=== PATIENT | male | born 1990 | race Caucasian/White ===

== ENCOUNTER 2017-08-02 10:36 | Inpatient (IN) | payer MEDICAID ==
[~2017-08-02] VITALS: Ht 175.3 cm; Wt 87.8 kg
[2017-08-02] MEDS ORDERED: ARIP2 PO (11:01)
[2017-08-02 11:12] LABS: BASOPHILS % (AUTO) 0.5 % (0.0-2.0); EOSINOPHILS % (AUTO) 0.9 % (1.0-6.0); HEMATOCRIT 47.6 % (41-53); HEMOGLOBIN 16.3 g/dL (13.5-17.5); LYMPHOCYTES # (AUTO) 2.1 K/uL (1.0-4.8); LYMPHOCYTES % (AUTO) 24.6 % (22.0-44.0); MEAN CORPUSCULAR HEMOGLOBIN 32.5 pg (26.0-34.0); MEAN CORPUSCULAR HGB CONC 34.4 G/dL (31.0-37.0); MEAN CORPUSCULAR VOLUME 94 fL (80-100); MONOCYTES # (AUTO) 0.6 K/uL (0.1-1.0); MONOCYTES % (AUTO) 7.1 % (2.0-9.0); NEUTROPHILS # (AUTO) 5.8 K/uL (1.8-7.7); NEUTROPHILS % (AUTO) 66.9 % (40.0-70.0); PLATELET COUNT (AUTO) 234 K/uL (150-450); RED BLOOD CELL COUNT(AUTO) 5.04 MIL/uL (4.50-5.90); RED CELL DISTRIBUTION WIDTH 13.2 % (11.5-14.5)
[2017-08-02 11:24] LABS: ANION GAP 8 mmol/L (8-16); CALCIUM, TOTAL 9.1 mg/dL (8.8-10.5); CARBON DIOXIDE 29 mmol/L (22-29); CHLORIDE 105 mmol/L (98-107); CREATININE 0.87 mg/dL (0.60-1.30); GLOMERULAR FILTR. RATE CALC > 60 mL/min (>60); GLUCOSE,RANDOM 94 mg/dL (70-110); POTASSIUM 3.9 mmol/L (3.5-5.1); SODIUM SERUM 142 mmol/L (136-145); UREA NITROGEN, BLOOD 8 mg/dL (7-18)
[2017-08-02 11:29] LABS: ALANINE AMINOTRANSFERASE 21 U/L (12-78); ALKALINE PHOSPHATASE 80 U/L (46-116); ASPARTATE AMINOTRANSFERASE 13 U/L (15-37); BILIRUBIN,TOTAL 0.2 mg/dL (0.1-1.0); TOTAL PROTEIN, SERUM 7.3 g/dL (6.4-8.2)
[2017-08-02] MEDS ORDERED: TOPI100T37 PO (11:31)
[2017-08-02] MEDS ORDERED: DIVA-76 PO (11:31)
[2017-08-02] MEDS ORDERED: METF500T6 PO (11:31)
[2017-08-02 14:34] VITALS: BP 122/69
[2017-08-02 14:38] LABS: CHOL/HDL RATIO 2.3 (4.2-7.3); CHOLESTEROL 116 mg/dL (131-200); HDL CHOLESTEROL 51 mg/dL (40-60); LDL CHOL (CALC.) 54 mg/dL (0-130); TRIGLYCERIDES 53 mg/dL (15-150)
[2017-08-02 19:19] VITALS: BP 118/81
[2017-08-03 08:05] VITALS: BP 107/63
[2017-08-03] MEDS ORDERED: ARIPiprazole 2 MG TABLET PO SCH (09:30)
[2017-08-03] MEDS: DIVALPROEX SODIUM 250 MG DR TABLET PO SCH ×2 (10:51→16:56)
[2017-08-03] MEDS ORDERED: ARIPiprazole 10 MG TABLET PO ONE (11:15)
[2017-08-03] MEDS ORDERED: MAG HYDROX/AL HYDROX/SIMETH ES 30 ML SUSPENSION UDCUP PO PRN (16:45)
[2017-08-03] MEDS ORDERED: BENZOCAINE/MENTHOL LOZENGE [8 LOZENGES/PACKET] MM PRN (16:45)
[2017-08-03] MEDS ORDERED: PETROLATUM,WHITE 71 GM JELLY TP PRN (16:45)
[2017-08-03] MEDS ORDERED: ONDANSETRON HCL 4 MG TABLET PO PRN (16:45)
[2017-08-03] MEDS ORDERED: ALBUTEROL SULFATE HFA 90 MCG/PUFF 8 GM INHALER IH PRN (16:45)
[2017-08-03] MEDS ORDERED: CloNIDine HCL 0.1 MG TABLET PO PRN (16:45)
[2017-08-03] MEDS ORDERED: MAGNESIUM HYDROXIDE SUSPENSION 30 ML UDCUP PO PRN (16:45)
[2017-08-03] MEDS ORDERED: LOPERAMIDE HCL 2 MG CAPSULE PO PRN (16:45)
[2017-08-03] MEDS: TOPIRAMATE 100 MG TABLET PO SCH (16:56)
[2017-08-03 17:00] VITALS: BP 103/68
[2017-08-04 09:12] VITALS: BP 114/73
[2017-08-04] MEDS: TOPIRAMATE 100 MG TABLET PO SCH ×2 (09:14→17:51)
[2017-08-04] MEDS: DIVALPROEX SODIUM 250 MG DR TABLET PO SCH ×2 (09:14→17:51)
[2017-08-04] MEDS: ARIPiprazole 15 MG TABLET PO SCH (09:14)
[2017-08-04 16:15] VITALS: BP 114/79
[2017-08-05 08:05] VITALS: BP 109/62
[2017-08-05] MEDS: DIVALPROEX SODIUM 250 MG DR TABLET PO SCH ×2 (09:10→16:16)
[2017-08-05] MEDS: TOPIRAMATE 100 MG TABLET PO SCH ×2 (09:10→16:15)
[2017-08-05] MEDS: ARIPiprazole 15 MG TABLET PO SCH (09:10)
[2017-08-05 16:31] VITALS: BP 110/77
[2017-08-06 08:29] VITALS: BP 126/75
[2017-08-06] MEDS: DIVALPROEX SODIUM 250 MG DR TABLET PO SCH ×2 (09:56→16:15)
[2017-08-06] MEDS: TOPIRAMATE 100 MG TABLET PO SCH ×2 (09:56→16:15)
[2017-08-06] MEDS: ARIPiprazole 15 MG TABLET PO SCH (09:56)
[2017-08-06 17:11] VITALS: BP 105/66
[2017-08-07 08:08] VITALS: BP 111/60
[2017-08-07] MEDS: DIVALPROEX SODIUM 250 MG DR TABLET PO SCH ×2 (08:59→16:13)
[2017-08-07] MEDS: ARIPiprazole 15 MG TABLET PO SCH (08:59)
[2017-08-07] MEDS: TOPIRAMATE 100 MG TABLET PO SCH ×2 (09:00→16:13)
[2017-08-07 22:39] VITALS: BP 122/75
[2017-08-08 08:38] VITALS: BP 123/74
[2017-08-08] MEDS: ARIPiprazole 15 MG TABLET PO SCH (09:08)
[2017-08-08] MEDS: TOPIRAMATE 100 MG TABLET PO SCH ×2 (09:09→16:28)
[2017-08-08] MEDS: DIVALPROEX SODIUM 250 MG DR TABLET PO SCH ×2 (09:09→16:28)
[2017-08-08] MEDS ORDERED: TUBERCULIN, PURIFIED PROTEIN DERIVATIVE 5 TU/0.1 ML SYG ID ONE (11:00)
[2017-08-08] MEDS: LORazepam 2 MG TABLET PO PRN (17:08)
[2017-08-08 18:00] VITALS: BP 122/70
[2017-08-09] MEDS: DIVALPROEX SODIUM 250 MG DR TABLET PO SCH ×2 (09:32→16:23)
[2017-08-09] MEDS: ARIPiprazole 15 MG TABLET PO SCH (09:33)
[2017-08-09] MEDS: TOPIRAMATE 100 MG TABLET PO SCH ×2 (09:33→16:23)
[2017-08-09 09:51] VITALS: BP 110/72
[2017-08-09] MEDS: LORazepam 2 MG TABLET PO PRN (16:22)
[2017-08-09 16:53] VITALS: BP 127/53
[2017-08-10] MEDS: TOPIRAMATE 100 MG TABLET PO SCH ×2 (08:58→16:07)
[2017-08-10] MEDS: ARIPiprazole 15 MG TABLET PO SCH (08:58)
[2017-08-10 09:00] VITALS: BP 129/67
[2017-08-10] MEDS: DIVALPROEX SODIUM 250 MG DR TABLET PO SCH ×2 (09:00→16:07)
[2017-08-10] MEDS: LORazepam 2 MG TABLET PO PRN ×3 (10:41→16:08)
[2017-08-10 16:22] VITALS: BP 142/93
[2017-08-11 08:10] VITALS: BP 116/60
[2017-08-11] MEDS: ARIPiprazole 15 MG TABLET PO SCH (08:50)
[2017-08-11] MEDS: DIVALPROEX SODIUM 250 MG DR TABLET PO SCH ×2 (08:50→16:06)
[2017-08-11] MEDS: TOPIRAMATE 100 MG TABLET PO SCH ×2 (08:50→16:06)
[2017-08-11] MEDS: LORazepam 2 MG TABLET PO PRN (16:06)
[2017-08-11 16:44] VITALS: BP 127/73
[2017-08-12] MEDS: ZOLPIDEM TARTRATE 10 MG TABLET PO PRN (02:27)
[2017-08-12 08:00] VITALS: BP 121/79
[2017-08-12] MEDS: DIVALPROEX SODIUM 250 MG DR TABLET PO SCH ×2 (08:28→16:22)
[2017-08-12] MEDS: TOPIRAMATE 100 MG TABLET PO SCH ×2 (08:29→16:22)
[2017-08-12] MEDS: ARIPiprazole 15 MG TABLET PO SCH (08:29)
[2017-08-12] MEDS: LORazepam 2 MG TABLET PO PRN ×2 (08:49→21:09)
[2017-08-13] MEDS: IBUPROFEN 600 MG TABLET PO PRN ×2 (03:48→10:03)
[2017-08-13 08:37] VITALS: BP 119/70
[2017-08-13] MEDS: OLANZapine 5 MG RAPDIS TABLET PO PRN (08:48)
[2017-08-13] MEDS: TOPIRAMATE 100 MG TABLET PO SCH ×2 (08:48→16:54)
[2017-08-13] MEDS: ARIPiprazole 15 MG TABLET PO SCH (08:48)
[2017-08-13] MEDS: LORazepam 2 MG TABLET PO PRN ×2 (08:48→17:46)
[2017-08-13] MEDS: DIVALPROEX SODIUM 250 MG DR TABLET PO SCH ×2 (08:48→16:54)
[2017-08-13 16:00] VITALS: BP 102/62
[2017-08-14 00:20] VITALS: BP 120/68
[2017-08-14] MEDS: IBUPROFEN 600 MG TABLET PO PRN ×2 (00:26→23:37)
[2017-08-14] MEDS: LORazepam 2 MG TABLET PO PRN ×2 (00:27→11:35)
[2017-08-14] MEDS: ZOLPIDEM TARTRATE 10 MG TABLET PO PRN ×2 (00:27→23:36)
[2017-08-14 08:00] VITALS: BP 119/77
[2017-08-14] MEDS: ARIPiprazole 15 MG TABLET PO SCH (08:42)
[2017-08-14] MEDS: DIVALPROEX SODIUM 250 MG DR TABLET PO SCH ×2 (08:42→19:21)
[2017-08-14] MEDS: TOPIRAMATE 100 MG TABLET PO SCH ×2 (08:42→19:21)
[2017-08-14 16:00] VITALS: BP 116/73
[2017-08-14 23:37] VITALS: BP 118/75
[2017-08-15 08:21] VITALS: BP 113/83
[2017-08-15] MEDS: LORazepam 2 MG TABLET PO PRN (08:52)
[2017-08-15] MEDS: ARIPiprazole 15 MG TABLET PO SCH (08:58)
[2017-08-15] MEDS: TOPIRAMATE 100 MG TABLET PO SCH ×2 (08:58→16:06)
[2017-08-15] MEDS: DIVALPROEX SODIUM 250 MG DR TABLET PO SCH (08:58)
[2017-08-15 20:05] VITALS: BP 121/71
[2017-08-15] MEDS: DIVALPROEX SODIUM 500 MG ER TABLET PO SCH (20:09)
[2017-08-15] MEDS: ACETAMINOPHEN 325 MG TABLET PO PRN (20:10)
[2017-08-15 21:05] VITALS: BP 116/74
[2017-08-16] MEDS: LORazepam 2 MG TABLET PO PRN ×2 (07:38→20:10)
[2017-08-16] MEDS: IBUPROFEN 600 MG TABLET PO PRN (07:39)
[2017-08-16 08:00] VITALS: BP 113/80
[2017-08-16] MEDS: TOPIRAMATE 100 MG TABLET PO SCH ×2 (08:26→16:52)
[2017-08-16] MEDS: ARIPiprazole 15 MG TABLET PO SCH (08:26)
[2017-08-16] MEDS ORDERED: HALOPERIDOL LACTATE 5 MG/ML VIAL IM PRN (08:30)
[2017-08-16 16:56] VITALS: BP 122/82
[2017-08-16] MEDS: DIVALPROEX SODIUM 500 MG ER TABLET PO SCH (20:09)
[2017-08-17] MEDS: ARIPiprazole 15 MG TABLET PO SCH (08:36)
[2017-08-17] MEDS: TOPIRAMATE 100 MG TABLET PO SCH ×2 (08:37→16:06)
[2017-08-17 08:53] VITALS: BP 106/55
[2017-08-17] MEDS: LORazepam 2 MG TABLET PO PRN ×2 (10:26→16:06)
[2017-08-17] MEDS: IBUPROFEN 600 MG TABLET PO PRN (10:33)
[2017-08-17 20:17] VITALS: BP 108/69
[2017-08-17] MEDS: DIVALPROEX SODIUM 500 MG ER TABLET PO SCH (21:00)
[2017-08-18 02:02] VITALS: BP 114/53
[2017-08-18] MEDS: IBUPROFEN 600 MG TABLET PO PRN ×2 (02:06→08:26)
[2017-08-18] MEDS: ZOLPIDEM TARTRATE 10 MG TABLET PO PRN ×2 (02:16→20:28)
[2017-08-18] MEDS: TOPIRAMATE 100 MG TABLET PO SCH ×2 (08:05→16:36)
[2017-08-18] MEDS: ARIPiprazole 15 MG TABLET PO SCH (08:05)
[2017-08-18 09:07] VITALS: BP 111/69
[2017-08-18] MEDS: LORazepam 2 MG TABLET PO PRN ×2 (09:28→16:13)
[2017-08-18 16:00] VITALS: BP 118/76
[2017-08-18] MEDS: DIVALPROEX SODIUM 500 MG ER TABLET PO SCH (20:21)
[2017-08-19 00:45] VITALS: BP 127/56
[2017-08-19] MEDS: IBUPROFEN 600 MG TABLET PO PRN ×3 (00:48→19:42)
[2017-08-19] MEDS: ARIPiprazole 15 MG TABLET PO SCH (08:22)
[2017-08-19] MEDS: LORazepam 2 MG TABLET PO PRN ×3 (08:23→19:42)
[2017-08-19] MEDS: TOPIRAMATE 100 MG TABLET PO SCH ×2 (08:24→17:09)
[2017-08-19 08:39] VITALS: BP 122/69
[2017-08-19 08:42] VITALS: BP 122/69
[2017-08-19 19:43] VITALS: BP 122/70
[2017-08-19] MEDS: DIVALPROEX SODIUM 500 MG ER TABLET PO SCH (20:41)
[2017-08-19] MEDS: ZOLPIDEM TARTRATE 10 MG TABLET PO PRN (20:45)
[2017-08-19] MEDS: BENZOCAINE 10% 7 GM GEL TP PRN (20:45)
[2017-08-20] MEDS: ARIPiprazole 15 MG TABLET PO SCH (08:05)
[2017-08-20] MEDS: IBUPROFEN 600 MG TABLET PO PRN ×2 (08:06→18:38)
[2017-08-20] MEDS: TOPIRAMATE 100 MG TABLET PO SCH ×2 (08:06→16:15)
[2017-08-20] MEDS: LORazepam 2 MG TABLET PO PRN ×2 (08:06→19:55)
[2017-08-20] MEDS: BENZOCAINE 10% 7 GM GEL TP PRN ×2 (08:06→20:35)
[2017-08-20] MEDS: MAGNESIUM SULFATE 454 GM BOX PO SCH ×3 (08:07→16:25)
[2017-08-20 09:26] LABS: HEMATOCRIT 44.9 % (41-53); HEMOGLOBIN 15.7 g/dL (13.5-17.5); MEAN CORPUSCULAR HEMOGLOBIN 32.4 pg (26.0-34.0); MEAN CORPUSCULAR HGB CONC 34.9 G/dL (31.0-37.0); MEAN CORPUSCULAR VOLUME 93 fL (80-100); PLATELET COUNT (AUTO) 202 K/uL (150-450); RED BLOOD CELL COUNT(AUTO) 4.83 MIL/uL (4.50-5.90); RED CELL DISTRIBUTION WIDTH 13.6 % (11.5-14.5)
[2017-08-20 09:40] LABS: ANION GAP 9 mmol/L (8-16); CALCIUM, TOTAL 8.9 mg/dL (8.8-10.5); CARBON DIOXIDE 27 mmol/L (22-29); CHLORIDE 105 mmol/L (98-107); CREATININE 0.87 mg/dL (0.60-1.30); GLOMERULAR FILTR. RATE CALC > 60 mL/min (>60); GLUCOSE,RANDOM 94 mg/dL (70-110); PHOSPHORUS 3.9 mg/dL (2.5-4.9); POTASSIUM 4.3 mmol/L (3.5-5.1); SODIUM SERUM 141 mmol/L (136-145); UREA NITROGEN, BLOOD 16 mg/dL (7-18)
[2017-08-20 11:14] LABS: BAND NEUTROPHILS % (MANUAL) 5 % (1-5); EOSINOPHILS % (MANUAL) 3 % (1-6); LYMPHOCYTES % (MANUAL) 17 % (22-44); MONOCYTES % (MANUAL) 8 % (2-9); SEGMENTED NEUTROPHILS % 67 % (40-70)
[2017-08-20 11:45] VITALS: BP 112/87
[2017-08-20 18:42] VITALS: BP 125/66
[2017-08-20] MEDS: DIVALPROEX SODIUM 500 MG ER TABLET PO SCH (20:35)
[2017-08-21 08:15] VITALS: BP 105/72
[2017-08-21] MEDS: MAGNESIUM SULFATE 454 GM BOX PO SCH ×3 (08:55→16:33)
[2017-08-21] MEDS: ARIPiprazole 15 MG TABLET PO SCH (08:55)
[2017-08-21] MEDS: TOPIRAMATE 100 MG TABLET PO SCH ×2 (08:56→16:33)
[2017-08-21] MEDS: BENZOCAINE 10% 7 GM GEL TP PRN ×2 (09:33→18:23)
[2017-08-21 09:34] VITALS: BP 105/72
[2017-08-21] MEDS: IBUPROFEN 600 MG TABLET PO PRN ×2 (09:34→18:12)
[2017-08-21 16:28] VITALS: BP 100/73
[2017-08-21] MEDS: DIVALPROEX SODIUM 500 MG ER TABLET PO SCH (20:37)
[2017-08-22 08:19] VITALS: BP 126/77
[2017-08-22] MEDS: ARIPiprazole 15 MG TABLET PO SCH (08:35)
[2017-08-22] MEDS: MAGNESIUM SULFATE 454 GM BOX PO SCH ×3 (08:35→16:25)
[2017-08-22] MEDS: TOPIRAMATE 100 MG TABLET PO SCH ×2 (08:36→16:25)
[2017-08-22] MEDS: BENZOCAINE 10% 7 GM GEL TP PRN ×2 (09:46→18:33)
[2017-08-22] MEDS: NICOTINE 21 MG/24 HOUR PATCH TD SCH (10:50)
[2017-08-22] MEDS: AMOXICILLIN TRIHYDRATE 250 MG CAPSULE PO SCH ×2 (12:32→16:25)
[2017-08-22 16:00] VITALS: BP 129/78
[2017-08-22] MEDS: IBUPROFEN 600 MG TABLET PO PRN (18:31)
[2017-08-22] MEDS: LORazepam 2 MG TABLET PO PRN (18:52)
[2017-08-22] MEDS: DIVALPROEX SODIUM 500 MG ER TABLET PO SCH (20:13)
[2017-08-23] MEDS: AMOXICILLIN TRIHYDRATE 250 MG CAPSULE PO SCH ×2 (08:58→16:20)
[2017-08-23] MEDS: TOPIRAMATE 100 MG TABLET PO SCH ×2 (08:58→16:20)
[2017-08-23] MEDS: ARIPiprazole 15 MG TABLET PO SCH (08:58)
[2017-08-23] MEDS: MAGNESIUM SULFATE 454 GM BOX PO SCH ×3 (09:00→16:19)
[2017-08-23 09:15] VITALS: BP 104/60
[2017-08-23] MEDS: NICOTINE 21 MG/24 HOUR PATCH TD SCH (11:08)
[2017-08-23 16:00] VITALS: BP 105/70
[2017-08-23] MEDS: DIVALPROEX SODIUM 500 MG ER TABLET PO SCH (20:38)
[2017-08-24 08:00] VITALS: BP 121/71
[2017-08-24] MEDS: AMOXICILLIN TRIHYDRATE 250 MG CAPSULE PO SCH ×2 (08:42→16:26)
[2017-08-24] MEDS: TOPIRAMATE 100 MG TABLET PO SCH ×2 (08:42→16:26)
[2017-08-24] MEDS: ARIPiprazole 15 MG TABLET PO SCH (08:42)
[2017-08-24] MEDS: NICOTINE 21 MG/24 HOUR PATCH TD SCH (08:46)
[2017-08-24] MEDS: MAGNESIUM SULFATE 454 GM BOX PO SCH ×3 (09:00→16:26)
[2017-08-24 16:25] VITALS: BP 115/55
[2017-08-24] MEDS: BENZOCAINE 10% 7 GM GEL TP PRN (18:45)
[2017-08-24] MEDS: DIVALPROEX SODIUM 500 MG ER TABLET PO SCH (20:13)
[2017-08-25] MEDS: ARIPiprazole 15 MG TABLET PO SCH (07:59)
[2017-08-25] MEDS: TOPIRAMATE 100 MG TABLET PO SCH ×2 (07:59→18:00)
[2017-08-25] MEDS: AMOXICILLIN TRIHYDRATE 250 MG CAPSULE PO SCH ×2 (07:59→18:00)
[2017-08-25] MEDS: MAGNESIUM SULFATE 454 GM BOX PO SCH ×3 (08:47→17:00)
[2017-08-25 09:00] VITALS: BP 108/67
[2017-08-25] MEDS: NICOTINE 21 MG/24 HOUR PATCH TD SCH ×2 (09:00→14:20)
[2017-08-25] MEDS: BENZOCAINE 10% 7 GM GEL TP PRN (09:03)
[2017-08-25 19:30] VITALS: BP 126/76
[2017-08-25] MEDS: ACETAMINOPHEN 325 MG TABLET PO PRN (19:33)
[2017-08-25] MEDS: DIVALPROEX SODIUM 500 MG ER TABLET PO SCH (20:07)
[2017-08-25] MEDS: ZOLPIDEM TARTRATE 10 MG TABLET PO PRN (20:07)
[2017-08-25] MEDS: LORazepam 2 MG TABLET PO PRN (22:17)
[2017-08-26] MEDS: MAGNESIUM SULFATE 454 GM BOX PO SCH ×3 (09:11→16:18)
[2017-08-26] MEDS: AMOXICILLIN TRIHYDRATE 250 MG CAPSULE PO SCH ×2 (09:11→16:17)
[2017-08-26] MEDS: TOPIRAMATE 100 MG TABLET PO SCH ×2 (09:11→16:17)
[2017-08-26] MEDS: ARIPiprazole 15 MG TABLET PO SCH (09:11)
[2017-08-26 10:27] VITALS: BP_SYST 134; BP_DIAS 74; BP_DIAS 86
[2017-08-26 16:19] VITALS: BP 133/68
[2017-08-26] MEDS: IBUPROFEN 600 MG TABLET PO PRN (16:20)
[2017-08-26] MEDS: DIVALPROEX SODIUM 500 MG ER TABLET PO SCH (20:23)
[2017-08-27] MEDS: TOPIRAMATE 100 MG TABLET PO SCH ×2 (07:59→16:09)
[2017-08-27] MEDS: AMOXICILLIN TRIHYDRATE 250 MG CAPSULE PO SCH (07:59)
[2017-08-27] MEDS: ARIPiprazole 15 MG TABLET PO SCH (07:59)
[2017-08-27] MEDS: NICOTINE 21 MG/24 HOUR PATCH TD SCH (08:02)
[2017-08-27 08:37] VITALS: BP 105/69
[2017-08-27] MEDS: MAGNESIUM SULFATE 454 GM BOX PO SCH ×3 (08:39→16:11)
[2017-08-27] MEDS: BENZOCAINE 10% 7 GM GEL TP PRN (08:46)
[2017-08-27] MEDS: ACETAMINOPHEN 325 MG TABLET PO PRN ×2 (08:46→14:38)
[2017-08-27] MEDS: LORazepam 2 MG TABLET PO PRN (14:39)
[2017-08-27 15:38] VITALS: BP 116/71
[2017-08-27 19:49] VITALS: BP 118/69
[2017-08-27] MEDS: DIVALPROEX SODIUM 500 MG ER TABLET PO SCH (20:56)
[2017-08-27] MEDS: ZOLPIDEM TARTRATE 10 MG TABLET PO PRN (23:35)
[2017-08-28] MEDS: TOPIRAMATE 100 MG TABLET PO SCH ×2 (08:16→16:02)
[2017-08-28] MEDS: ARIPiprazole 15 MG TABLET PO SCH (08:16)
[2017-08-28] MEDS: NICOTINE 21 MG/24 HOUR PATCH TD SCH (08:38)
[2017-08-28] MEDS: MAGNESIUM SULFATE 454 GM BOX PO SCH ×3 (09:00→16:03)
[2017-08-28 10:34] VITALS: BP 124/64
[2017-08-28] MEDS: LORazepam 2 MG TABLET PO PRN (17:11)
[2017-08-28 17:20] VITALS: BP 102/59
[2017-08-28] MEDS: DIVALPROEX SODIUM 500 MG ER TABLET PO SCH (20:05)
[2017-08-28] MEDS: ZOLPIDEM TARTRATE 10 MG TABLET PO PRN (20:46)
[2017-08-28] MEDS: IBUPROFEN 600 MG TABLET PO PRN (21:24)
[2017-08-28] MEDS: BENZOCAINE 10% 7 GM GEL TP PRN (21:25)
[2017-08-29 08:50] VITALS: BP 116/68
[2017-08-29] MEDS: MAGNESIUM SULFATE 454 GM BOX PO SCH ×3 (09:00→16:02)
[2017-08-29] MEDS: ARIPiprazole 10 MG TABLET PO SCH (09:30)
[2017-08-29] MEDS: TOPIRAMATE 100 MG TABLET PO SCH ×2 (09:30→16:03)
[2017-08-29] MEDS: NICOTINE 21 MG/24 HOUR PATCH TD SCH (09:31)
[2017-08-29 15:54] VITALS: BP 118/73
[2017-08-29] MEDS: IBUPROFEN 600 MG TABLET PO PRN (15:54)
[2017-08-29] MEDS: DIVALPROEX SODIUM 500 MG ER TABLET PO SCH (20:43)
[2017-08-30 01:48] VITALS: BP 119/93
[2017-08-30] MEDS: MAGNESIUM SULFATE 454 GM BOX PO SCH ×3 (09:00→16:32)
[2017-08-30] MEDS: TOPIRAMATE 100 MG TABLET PO SCH ×2 (09:16→16:32)
[2017-08-30] MEDS: ARIPiprazole 10 MG TABLET PO SCH (09:16)
[2017-08-30] MEDS: NICOTINE 21 MG/24 HOUR PATCH TD SCH (09:20)
[2017-08-30] MEDS: IBUPROFEN 600 MG TABLET PO PRN (09:21)
[2017-08-30 09:22] VITALS: BP 114/69
[2017-08-30] MEDS: LORazepam 2 MG TABLET PO PRN (14:54)
[2017-08-30 16:45] VITALS: BP 126/83
[2017-08-30] MEDS: DIVALPROEX SODIUM 500 MG ER TABLET PO SCH (20:29)
[2017-08-31 08:28] VITALS: BP 105/57
[2017-08-31] MEDS: ARIPiprazole 10 MG TABLET PO SCH (08:58)
[2017-08-31] MEDS: TOPIRAMATE 100 MG TABLET PO SCH ×2 (08:58→16:14)
[2017-08-31] MEDS: MAGNESIUM SULFATE 454 GM BOX PO SCH ×3 (08:58→16:14)
[2017-08-31] MEDS: NICOTINE 21 MG/24 HOUR PATCH TD SCH (08:59)
[2017-08-31] MEDS: LORazepam 2 MG TABLET PO PRN (10:17)
[2017-08-31 16:00] VITALS: BP 126/82
[2017-08-31] MEDS: DIVALPROEX SODIUM 500 MG ER TABLET PO SCH (20:19)
[2017-09-01 08:32] VITALS: BP 136/74
[2017-09-01] MEDS: LORazepam 2 MG TABLET PO PRN (08:35)
[2017-09-01] MEDS: MAGNESIUM SULFATE 454 GM BOX PO SCH ×3 (08:35→16:09)
[2017-09-01] MEDS: ARIPiprazole 10 MG TABLET PO SCH (08:35)
[2017-09-01] MEDS: TOPIRAMATE 100 MG TABLET PO SCH ×2 (08:35→16:09)
[2017-09-01] MEDS: NICOTINE 21 MG/24 HOUR PATCH TD SCH (08:37)
[2017-09-01 16:00] VITALS: BP 133/78
[2017-09-01] MEDS: DIVALPROEX SODIUM 500 MG ER TABLET PO SCH (20:26)
[2017-09-02] MEDS: IBUPROFEN 600 MG TABLET PO PRN (04:10)
[2017-09-02] MEDS ORDERED: HALOPERIDOL LACTATE 5 MG/ML VIAL IM ONE (05:00)
[2017-09-02] MEDS ORDERED: DiphenhydrAMINE HCL 50 MG/ML VIAL IM ONE (05:00)
[2017-09-02] MEDS ORDERED: LORazepam 2 MG/ML VIAL IM ONE (05:00)
[2017-09-02] MEDS: ARIPiprazole 10 MG TABLET PO SCH (07:40)
[2017-09-02] MEDS: TOPIRAMATE 100 MG TABLET PO SCH ×2 (07:40→17:20)
[2017-09-02] MEDS: MAGNESIUM SULFATE 454 GM BOX PO SCH ×3 (07:40→17:00)
[2017-09-02] MEDS: NICOTINE 21 MG/24 HOUR PATCH TD SCH (07:46)
[2017-09-02] MEDS: DIVALPROEX SODIUM 500 MG ER TABLET PO SCH (20:54)
[2017-09-03 09:00] VITALS: BP 108/55
[2017-09-03] MEDS: NICOTINE 21 MG/24 HOUR PATCH TD SCH (09:00)
[2017-09-03] MEDS: TOPIRAMATE 100 MG TABLET PO SCH ×2 (09:27→17:33)
[2017-09-03] MEDS: ARIPiprazole 10 MG TABLET PO SCH (09:27)
[2017-09-03] MEDS: MAGNESIUM SULFATE 454 GM BOX PO SCH ×3 (10:00→17:36)
[2017-09-03] MEDS: BENZOCAINE 10% 7 GM GEL TP PRN (12:02)
[2017-09-03 17:38] VITALS: BP 112/65
[2017-09-03] MEDS: IBUPROFEN 600 MG TABLET PO PRN (20:10)
[2017-09-03] MEDS: DIVALPROEX SODIUM 500 MG ER TABLET PO SCH (20:14)
[2017-09-04] MEDS: MAGNESIUM SULFATE 454 GM BOX PO SCH ×3 (09:00→16:34)
[2017-09-04 09:24] VITALS: BP 129/79
[2017-09-04] MEDS: ARIPiprazole 10 MG TABLET PO SCH (09:29)
[2017-09-04] MEDS: TOPIRAMATE 100 MG TABLET PO SCH ×2 (09:30→16:34)
[2017-09-04] MEDS: NICOTINE 21 MG/24 HOUR PATCH TD SCH (09:35)
[2017-09-04] MEDS: IBUPROFEN 600 MG TABLET PO PRN (15:14)
[2017-09-04] MEDS: LORazepam 2 MG TABLET PO PRN (15:50)
[2017-09-04 16:14] VITALS: BP 116/71
[2017-09-04] MEDS: DIVALPROEX SODIUM 500 MG ER TABLET PO SCH (20:15)
[2017-09-05 08:13] VITALS: BP 124/68
[2017-09-05] MEDS: TOPIRAMATE 100 MG TABLET PO SCH ×2 (09:09→16:27)
[2017-09-05] MEDS: ARIPiprazole 10 MG TABLET PO SCH (09:09)
[2017-09-05] MEDS: MAGNESIUM SULFATE 454 GM BOX PO SCH ×3 (09:09→16:26)
[2017-09-05] MEDS: NICOTINE 21 MG/24 HOUR PATCH TD SCH (09:09)
[2017-09-05] MEDS: IBUPROFEN 600 MG TABLET PO PRN ×2 (11:47→21:18)
[2017-09-05 12:47] VITALS: BP 119/72
[2017-09-05 16:00] VITALS: BP 114/68
[2017-09-05 18:09] VITALS: BP 126/68
[2017-09-05] MEDS: DIVALPROEX SODIUM 500 MG ER TABLET PO SCH (20:06)
[2017-09-06 08:29] VITALS: BP 102/67
[2017-09-06] MEDS: ARIPiprazole 10 MG TABLET PO SCH (11:00)
[2017-09-06] MEDS: TOPIRAMATE 100 MG TABLET PO SCH ×2 (11:00→17:07)
[2017-09-06] MEDS: IBUPROFEN 600 MG TABLET PO PRN ×2 (11:00→17:56)
[2017-09-06] MEDS: MAGNESIUM SULFATE 454 GM BOX PO SCH ×3 (11:01→17:07)
[2017-09-06] MEDS: NICOTINE 21 MG/24 HOUR PATCH TD SCH (11:02)
[2017-09-06] MEDS: BENZOCAINE 10% 7 GM GEL TP PRN (11:03)
[2017-09-06 17:57] VITALS: BP 118/82
[2017-09-06] MEDS: DIVALPROEX SODIUM 500 MG ER TABLET PO SCH (21:13)
[2017-09-07 08:00] VITALS: BP 127/69
[2017-09-07 08:29] VITALS: BP 127/69
[2017-09-07] MEDS: ARIPiprazole 10 MG TABLET PO SCH (08:44)
[2017-09-07] MEDS: TOPIRAMATE 100 MG TABLET PO SCH ×2 (08:44→16:43)
[2017-09-07] MEDS: NICOTINE 21 MG/24 HOUR PATCH TD SCH (08:46)
[2017-09-07] MEDS: MAGNESIUM SULFATE 454 GM BOX PO SCH ×3 (09:00→16:43)
[2017-09-07] MEDS: LORazepam 2 MG TABLET PO PRN (09:54)
[2017-09-07] MEDS: IBUPROFEN 600 MG TABLET PO PRN (11:09)
[2017-09-07 16:20] VITALS: BP 117/73
[2017-09-07] MEDS: DIVALPROEX SODIUM 500 MG ER TABLET PO SCH (20:47)
[2017-09-08 08:44] VITALS: BP 103/56
[2017-09-08] MEDS: NICOTINE 21 MG/24 HOUR PATCH TD SCH (09:00)
[2017-09-08] MEDS: TOPIRAMATE 100 MG TABLET PO SCH ×2 (09:33→17:40)
[2017-09-08] MEDS: MAGNESIUM SULFATE 454 GM BOX PO SCH ×3 (09:33→17:40)
[2017-09-08] MEDS: ARIPiprazole 10 MG TABLET PO SCH (09:34)
[2017-09-08] MEDS: LORazepam 2 MG TABLET PO PRN (11:28)
[2017-09-08] MEDS: DIVALPROEX SODIUM 500 MG ER TABLET PO SCH (20:53)
[2017-09-09 08:37] VITALS: BP 97/63
[2017-09-09] MEDS: NICOTINE 21 MG/24 HOUR PATCH TD SCH (09:00)
[2017-09-09 10:45] VITALS: BP 119/70
[2017-09-09] MEDS: ARIPiprazole 10 MG TABLET PO SCH (10:45)
[2017-09-09] MEDS: IBUPROFEN 600 MG TABLET PO PRN (10:46)
[2017-09-09] MEDS: MAGNESIUM SULFATE 454 GM BOX PO SCH ×3 (10:46→15:50)
[2017-09-09] MEDS: TOPIRAMATE 100 MG TABLET PO SCH ×2 (10:46→15:48)
[2017-09-09 16:00] VITALS: BP 104/65
[2017-09-09] MEDS: DIVALPROEX SODIUM 500 MG ER TABLET PO SCH (21:02)
[2017-09-10 08:09] VITALS: BP 117/77
[2017-09-10] MEDS: ARIPiprazole 10 MG TABLET PO SCH (08:12)
[2017-09-10] MEDS: MAGNESIUM SULFATE 454 GM BOX PO SCH ×3 (08:12→16:17)
[2017-09-10] MEDS: TOPIRAMATE 100 MG TABLET PO SCH ×2 (08:12→16:16)
[2017-09-10] MEDS: IBUPROFEN 600 MG TABLET PO PRN (08:12)
[2017-09-10] MEDS: NICOTINE 21 MG/24 HOUR PATCH TD SCH (08:13)
[2017-09-10] MEDS: LORazepam 2 MG TABLET PO PRN (14:26)
[2017-09-10 16:44] VITALS: BP 118/60
[2017-09-10] MEDS: DIVALPROEX SODIUM 500 MG ER TABLET PO SCH (20:37)
[2017-09-11] MEDS: ARIPiprazole 10 MG TABLET PO SCH (07:48)
[2017-09-11] MEDS: TOPIRAMATE 100 MG TABLET PO SCH ×2 (07:48→16:03)
[2017-09-11] MEDS: NICOTINE 21 MG/24 HOUR PATCH TD SCH (07:51)
[2017-09-11] MEDS: MAGNESIUM SULFATE 454 GM BOX PO SCH ×3 (07:51→16:03)
[2017-09-11 08:25] VITALS: BP 122/73
[2017-09-11 08:57] VITALS: BP 112/69
[2017-09-11] MEDS: IBUPROFEN 600 MG TABLET PO PRN (08:57)
[2017-09-11] MEDS: LORazepam 2 MG TABLET PO PRN (13:09)
[2017-09-11 16:29] VITALS: BP 116/71
[2017-09-11] MEDS: DIVALPROEX SODIUM 500 MG ER TABLET PO SCH (20:53)
[2017-09-11] MEDS: ZOLPIDEM TARTRATE 10 MG TABLET PO PRN (22:11)
[2017-09-12] MEDS: MAGNESIUM SULFATE 454 GM BOX PO SCH ×3 (08:01→17:39)
[2017-09-12] MEDS: ARIPiprazole 10 MG TABLET PO SCH (08:01)
[2017-09-12] MEDS: NICOTINE 21 MG/24 HOUR PATCH TD SCH (08:01)
[2017-09-12] MEDS: TOPIRAMATE 100 MG TABLET PO SCH ×2 (08:01→16:56)
[2017-09-12 08:31] VITALS: BP 109/65
[2017-09-12] MEDS: IBUPROFEN 600 MG TABLET PO PRN (10:02)
[2017-09-12 10:05] VITALS: BP 115/73
[2017-09-12 16:23] VITALS: BP 131/74
[2017-09-12] MEDS: LORazepam 2 MG TABLET PO PRN (16:55)
[2017-09-12] MEDS: DIVALPROEX SODIUM 500 MG ER TABLET PO SCH (20:29)
[2017-09-13] MEDS: ARIPiprazole 10 MG TABLET PO SCH (08:02)
[2017-09-13] MEDS: TOPIRAMATE 100 MG TABLET PO SCH ×2 (08:03→16:20)
[2017-09-13] MEDS: MAGNESIUM SULFATE 454 GM BOX PO SCH ×3 (08:22→16:20)
[2017-09-13] MEDS: NICOTINE 21 MG/24 HOUR PATCH TD SCH (08:22)
[2017-09-13 08:42] VITALS: BP 107/62
[2017-09-13] MEDS: IBUPROFEN 600 MG TABLET PO PRN (12:52)
[2017-09-13 16:00] VITALS: BP 120/81
[2017-09-13] MEDS: LORazepam 2 MG TABLET PO PRN (16:34)
[2017-09-13] MEDS: DIVALPROEX SODIUM 500 MG ER TABLET PO SCH (21:31)
[2017-09-14 08:25] VITALS: BP 108/67
[2017-09-14] MEDS: MAGNESIUM SULFATE 454 GM BOX PO SCH ×3 (08:46→17:12)
[2017-09-14] MEDS: NICOTINE 21 MG/24 HOUR PATCH TD SCH (08:46)
[2017-09-14] MEDS: TOPIRAMATE 100 MG TABLET PO SCH ×2 (08:46→17:12)
[2017-09-14] MEDS: ARIPiprazole 10 MG TABLET PO SCH (08:46)
[2017-09-14] MEDS: IBUPROFEN 600 MG TABLET PO PRN (14:40)
[2017-09-14 15:40] VITALS: BP 128/70
[2017-09-14 18:56] VITALS: BP 130/76
[2017-09-14] MEDS: LORazepam 2 MG TABLET PO PRN (18:57)
[2017-09-14] MEDS: DIVALPROEX SODIUM 500 MG ER TABLET PO SCH (20:36)
[2017-09-15 08:19] VITALS: BP 115/75
[2017-09-15] MEDS: ARIPiprazole 10 MG TABLET PO SCH (09:17)
[2017-09-15] MEDS: NICOTINE 21 MG/24 HOUR PATCH TD SCH (09:17)
[2017-09-15] MEDS: TOPIRAMATE 100 MG TABLET PO SCH ×2 (09:17→17:05)
[2017-09-15] MEDS: MAGNESIUM SULFATE 454 GM BOX PO SCH ×3 (09:17→16:50)
[2017-09-15] MEDS: IBUPROFEN 600 MG TABLET PO PRN (12:06)
[2017-09-15 16:00] VITALS: BP 106/60
[2017-09-15] MEDS: LORazepam 2 MG TABLET PO PRN (17:06)
[2017-09-15] MEDS: DIVALPROEX SODIUM 500 MG ER TABLET PO SCH (20:38)
[2017-09-16 08:19] VITALS: BP 113/76
[2017-09-16] MEDS: ARIPiprazole 10 MG TABLET PO SCH (08:56)
[2017-09-16] MEDS: TOPIRAMATE 100 MG TABLET PO SCH ×2 (08:56→16:24)
[2017-09-16] MEDS: NICOTINE 21 MG/24 HOUR PATCH TD SCH ×2 (09:00→11:05)
[2017-09-16] MEDS: MAGNESIUM SULFATE 454 GM BOX PO SCH ×3 (09:00→16:23)
[2017-09-16] MEDS: IBUPROFEN 600 MG TABLET PO PRN (11:06)
[2017-09-16 16:50] VITALS: BP 122/63
[2017-09-16] MEDS: LORazepam 2 MG TABLET PO PRN (17:13)
[2017-09-16] MEDS: DIVALPROEX SODIUM 500 MG ER TABLET PO SCH (20:23)
[2017-09-17 05:47] LABS: BAND NEUTROPHILS % (MANUAL) 0 % (0-5)
[2017-09-17 06:22] LABS: HEMATOCRIT 43.9 % (41-53); HEMOGLOBIN 15.6 g/dL (13.5-17.5); MEAN CORPUSCULAR HEMOGLOBIN 32.8 pg (26.0-34.0); MEAN CORPUSCULAR HGB CONC 35.5 G/dL (31.0-37.0); MEAN CORPUSCULAR VOLUME 93 fL (80-100); PLATELET COUNT (AUTO) 193 K/uL (150-450); RED BLOOD CELL COUNT(AUTO) 4.75 MIL/uL (4.50-5.90); RED CELL DISTRIBUTION WIDTH 13.5 % (11.5-14.5)
[2017-09-17 06:30] LABS: ANION GAP 10 mmol/L (8-16); CALCIUM, TOTAL 8.9 mg/dL (8.8-10.5); CARBON DIOXIDE 24 mmol/L (22-29); CHLORIDE 107 mmol/L (98-107); CHOL/HDL RATIO 3.4 (4.2-7.3); CHOLESTEROL 129 mg/dL (131-200); CREATININE 1.05 mg/dL (0.60-1.30); GLOMERULAR FILTR. RATE CALC > 60 mL/min (>60); GLUCOSE,RANDOM 93 mg/dL (70-110); HDL CHOLESTEROL 38 mg/dL (40-60); LDL CHOL (CALC.) 67 mg/dL (0-130); PHOSPHORUS 4.7 mg/dL (2.5-4.9); SODIUM SERUM 141 mmol/L (136-145); THYROID STIMULATING HORMONE 5.13 uIU/mL (0.36-3.74); TRIGLYCERIDES 122 mg/dL (15-150); UREA NITROGEN, BLOOD 17 mg/dL (7-18)
[2017-09-17 08:00] VITALS: BP 110/61
[2017-09-17] MEDS: TOPIRAMATE 100 MG TABLET PO SCH ×2 (08:34→16:06)
[2017-09-17] MEDS: ARIPiprazole 10 MG TABLET PO SCH (08:34)
[2017-09-17] MEDS: NICOTINE 21 MG/24 HOUR PATCH TD SCH (08:38)
[2017-09-17] MEDS: MAGNESIUM SULFATE 454 GM BOX PO SCH ×3 (11:03→16:07)
[2017-09-17 11:10] LABS: EOSINOPHILS % (MANUAL) 4 % (1-6); LYMPHOCYTES % (MANUAL) 50 % (22-44); MONOCYTES % (MANUAL) 5 % (2-9); SEGMENTED NEUTROPHILS % 41 % (40-70)
[2017-09-17 18:20] VITALS: BP 124/67
[2017-09-17] MEDS: BACITRACIN 28.4 GM OINTMENT TP PRN (18:31)
[2017-09-17] MEDS: DIVALPROEX SODIUM 500 MG ER TABLET PO SCH (20:23)
[2017-09-17] MEDS: ZOLPIDEM TARTRATE 10 MG TABLET PO PRN (22:30)
[2017-09-18 08:46] VITALS: BP 93/65
[2017-09-18] MEDS: TOPIRAMATE 100 MG TABLET PO SCH ×2 (09:21→16:14)
[2017-09-18] MEDS: ARIPiprazole 10 MG TABLET PO SCH (09:21)
[2017-09-18] MEDS: NICOTINE 21 MG/24 HOUR PATCH TD SCH (09:22)
[2017-09-18] MEDS: MAGNESIUM SULFATE 454 GM BOX PO SCH ×3 (09:22→16:15)
[2017-09-18] MEDS: BACITRACIN 28.4 GM OINTMENT TP PRN (16:48)
[2017-09-18 17:01] VITALS: BP 120/69
[2017-09-18] MEDS: DIVALPROEX SODIUM 500 MG ER TABLET PO SCH (20:15)
[2017-09-19 08:00] VITALS: BP 100/52
[2017-09-19] MEDS: NICOTINE 21 MG/24 HOUR PATCH TD SCH (09:35)
[2017-09-19] MEDS: ARIPiprazole 10 MG TABLET PO SCH (09:36)
[2017-09-19] MEDS: MAGNESIUM SULFATE 454 GM BOX PO SCH ×3 (09:36→16:47)
[2017-09-19] MEDS: TOPIRAMATE 100 MG TABLET PO SCH ×2 (09:36→16:38)
[2017-09-19 17:04] VITALS: BP 117/69
[2017-09-19] MEDS: IBUPROFEN 600 MG TABLET PO PRN (17:31)
[2017-09-19] MEDS: DIVALPROEX SODIUM 500 MG ER TABLET PO SCH (20:26)
[2017-09-20] MEDS: LEVOTHYROXINE SODIUM 50 MCG TABLET PO SCH (06:51)
[2017-09-20 08:00] VITALS: BP 100/59
[2017-09-20] MEDS: TOPIRAMATE 100 MG TABLET PO SCH ×2 (09:12→16:25)
[2017-09-20] MEDS: ARIPiprazole 10 MG TABLET PO SCH (09:13)
[2017-09-20] MEDS: MAGNESIUM SULFATE 454 GM BOX PO SCH ×3 (09:13→16:26)
[2017-09-20] MEDS: NICOTINE 21 MG/24 HOUR PATCH TD SCH (09:16)
[2017-09-20 16:00] VITALS: BP 128/73
[2017-09-20] MEDS: LORazepam 2 MG TABLET PO PRN (16:25)
[2017-09-20] MEDS: DIVALPROEX SODIUM 500 MG ER TABLET PO SCH (20:37)
[2017-09-21] MEDS: LEVOTHYROXINE SODIUM 50 MCG TABLET PO SCH (06:58)
[2017-09-21 08:00] VITALS: BP 104/56
[2017-09-21] MEDS: ARIPiprazole 10 MG TABLET PO SCH (09:18)
[2017-09-21] MEDS: MAGNESIUM SULFATE 454 GM BOX PO SCH ×3 (09:18→16:59)
[2017-09-21] MEDS: NICOTINE 21 MG/24 HOUR PATCH TD SCH (09:18)
[2017-09-21] MEDS: TOPIRAMATE 100 MG TABLET PO SCH ×2 (09:19→16:59)
[2017-09-21] MEDS: LORazepam 2 MG TABLET PO PRN (13:44)
[2017-09-21 16:00] VITALS: BP 124/72
[2017-09-21] MEDS: DIVALPROEX SODIUM 500 MG ER TABLET PO SCH (20:11)
[2017-09-22] MEDS: LEVOTHYROXINE SODIUM 50 MCG TABLET PO SCH (06:47)
[2017-09-22 08:05] VITALS: BP 125/76
[2017-09-22] MEDS: ARIPiprazole 10 MG TABLET PO SCH (09:12)
[2017-09-22] MEDS: TOPIRAMATE 100 MG TABLET PO SCH ×2 (09:12→16:50)
[2017-09-22] MEDS: MAGNESIUM SULFATE 454 GM BOX PO SCH ×3 (09:13→16:50)
[2017-09-22] MEDS: NICOTINE 21 MG/24 HOUR PATCH TD SCH (09:13)
[2017-09-22] MEDS: LORazepam 2 MG TABLET PO PRN (14:04)
[2017-09-22 16:30] VITALS: BP 110/61
[2017-09-22] MEDS: DIVALPROEX SODIUM 500 MG ER TABLET PO SCH (20:04)
[2017-09-23] MEDS: LEVOTHYROXINE SODIUM 50 MCG TABLET PO SCH (07:09)
[2017-09-23] MEDS: ARIPiprazole 10 MG TABLET PO SCH (08:26)
[2017-09-23] MEDS: TOPIRAMATE 100 MG TABLET PO SCH ×2 (08:26→17:42)
[2017-09-23] MEDS: NICOTINE 21 MG/24 HOUR PATCH TD SCH (08:27)
[2017-09-23] MEDS: MAGNESIUM SULFATE 454 GM BOX PO SCH ×3 (08:27→17:42)
[2017-09-23 09:13] VITALS: BP 108/72
[2017-09-23 16:00] VITALS: BP 114/75
[2017-09-23] MEDS: BENZTROPINE MESYLATE 1 MG TABLET PO SCH (17:42)
[2017-09-23] MEDS: LORazepam 2 MG TABLET PO PRN (17:43)
[2017-09-23] MEDS: DIVALPROEX SODIUM 500 MG ER TABLET PO SCH (20:30)
[2017-09-23] MEDS: ZOLPIDEM TARTRATE 10 MG TABLET PO PRN (21:39)
[2017-09-24] MEDS: LEVOTHYROXINE SODIUM 50 MCG TABLET PO SCH (06:51)
[2017-09-24] MEDS: ARIPiprazole 10 MG TABLET PO SCH (08:15)
[2017-09-24] MEDS: TOPIRAMATE 100 MG TABLET PO SCH ×2 (08:15→16:07)
[2017-09-24] MEDS: MAGNESIUM SULFATE 454 GM BOX PO SCH ×3 (08:16→16:07)
[2017-09-24] MEDS: IBUPROFEN 600 MG TABLET PO PRN (08:17)
[2017-09-24] MEDS: BENZTROPINE MESYLATE 1 MG TABLET PO SCH (08:17)
[2017-09-24] MEDS: NICOTINE 21 MG/24 HOUR PATCH TD SCH (08:18)
[2017-09-24 08:31] VITALS: BP 121/70
[2017-09-24] MEDS: LORazepam 2 MG TABLET PO PRN ×2 (09:04→15:54)
[2017-09-24] MEDS ORDERED: CLINDAMYCIN HCL 300 MG CAPSULE PO SCH (15:00)
[2017-09-24] MEDS: CLINDAMYCIN HCL 300 MG CAPSULE PO SCH ×2 (15:01→23:08)
[2017-09-24 16:00] VITALS: BP 108/62
[2017-09-24] MEDS: DIVALPROEX SODIUM 500 MG ER TABLET PO SCH (20:45)
[2017-09-24] MEDS: ZOLPIDEM TARTRATE 10 MG TABLET PO PRN (20:54)
[2017-09-25] MEDS: CLINDAMYCIN HCL 300 MG CAPSULE PO SCH ×3 (06:22→23:04)
[2017-09-25] MEDS: LEVOTHYROXINE SODIUM 50 MCG TABLET PO SCH (06:25)
[2017-09-25] MEDS: ARIPiprazole 10 MG TABLET PO SCH (08:09)
[2017-09-25] MEDS: NICOTINE 21 MG/24 HOUR PATCH TD SCH (08:09)
[2017-09-25] MEDS: TOPIRAMATE 100 MG TABLET PO SCH ×2 (08:09→16:16)
[2017-09-25] MEDS: BENZTROPINE MESYLATE 1 MG TABLET PO SCH (08:09)
[2017-09-25 08:10] VITALS: BP 111/63
[2017-09-25] MEDS: MAGNESIUM SULFATE 454 GM BOX PO SCH ×3 (08:10→16:15)
[2017-09-25] MEDS: LORazepam 2 MG TABLET PO PRN (09:44)
[2017-09-25] MEDS: OLANZapine 5 MG RAPDIS TABLET PO PRN (09:44)
[2017-09-25 16:48] VITALS: BP 114/68
[2017-09-25] MEDS: DIVALPROEX SODIUM 500 MG ER TABLET PO SCH (20:57)
[2017-09-26] MEDS: LEVOTHYROXINE SODIUM 50 MCG TABLET PO SCH (06:50)
[2017-09-26] MEDS: CLINDAMYCIN HCL 300 MG CAPSULE PO SCH ×3 (06:51→23:34)
[2017-09-26 08:29] VITALS: BP 107/66
[2017-09-26] MEDS: NICOTINE 21 MG/24 HOUR PATCH TD SCH (09:00)
[2017-09-26] MEDS: MAGNESIUM SULFATE 454 GM BOX PO SCH ×3 (09:00→17:14)
[2017-09-26] MEDS: BENZTROPINE MESYLATE 1 MG TABLET PO SCH (09:36)
[2017-09-26] MEDS: TOPIRAMATE 100 MG TABLET PO SCH ×2 (09:36→17:15)
[2017-09-26] MEDS: ARIPiprazole 10 MG TABLET PO SCH (09:36)
[2017-09-26 17:13] VITALS: BP 107/59
[2017-09-26] MEDS: DIVALPROEX SODIUM 500 MG ER TABLET PO SCH (21:45)
[2017-09-27] MEDS: LEVOTHYROXINE SODIUM 50 MCG TABLET PO SCH (06:57)
[2017-09-27] MEDS: CLINDAMYCIN HCL 300 MG CAPSULE PO SCH ×3 (06:57→22:20)
[2017-09-27] MEDS: ARIPiprazole 10 MG TABLET PO SCH (08:55)
[2017-09-27] MEDS: BENZTROPINE MESYLATE 1 MG TABLET PO SCH (08:56)
[2017-09-27] MEDS: TOPIRAMATE 100 MG TABLET PO SCH ×2 (08:57→16:48)
[2017-09-27 09:00] VITALS: BP 128/74
[2017-09-27] MEDS: NICOTINE 21 MG/24 HOUR PATCH TD SCH ×2 (09:00→12:20)
[2017-09-27] MEDS: MAGNESIUM SULFATE 454 GM BOX PO SCH ×3 (09:12→16:48)
[2017-09-27] MEDS: IBUPROFEN 600 MG TABLET PO PRN (11:49)
[2017-09-27 19:22] VITALS: BP 115/61
[2017-09-27] MEDS: DIVALPROEX SODIUM 500 MG ER TABLET PO SCH (20:04)
[2017-09-27] MEDS: ZOLPIDEM TARTRATE 10 MG TABLET PO PRN (20:05)
[2017-09-28] MEDS: LEVOTHYROXINE SODIUM 50 MCG TABLET PO SCH (07:03)
[2017-09-28] MEDS: CLINDAMYCIN HCL 300 MG CAPSULE PO SCH ×3 (07:03→22:10)
[2017-09-28] MEDS: TOPIRAMATE 100 MG TABLET PO SCH ×2 (08:33→16:59)
[2017-09-28] MEDS: BENZTROPINE MESYLATE 1 MG TABLET PO SCH (08:33)
[2017-09-28] MEDS: ARIPiprazole 10 MG TABLET PO SCH (08:33)
[2017-09-28 09:52] VITALS: BP 104/62
[2017-09-28] MEDS: MAGNESIUM SULFATE 454 GM BOX PO SCH ×3 (10:06→16:58)
[2017-09-28] MEDS: NICOTINE 21 MG/24 HOUR PATCH TD SCH (10:07)
[2017-09-28] MEDS: IBUPROFEN 600 MG TABLET PO PRN (13:05)
[2017-09-28 18:33] VITALS: BP 124/82
[2017-09-28] MEDS: LORazepam 2 MG TABLET PO PRN (19:56)
[2017-09-28] MEDS: DIVALPROEX SODIUM 500 MG ER TABLET PO SCH (20:03)
[2017-09-29] MEDS: LEVOTHYROXINE SODIUM 50 MCG TABLET PO SCH (06:56)
[2017-09-29] MEDS: CLINDAMYCIN HCL 300 MG CAPSULE PO SCH ×2 (06:56→14:56)
[2017-09-29 08:36] VITALS: BP 102/61
[2017-09-29] MEDS: BENZTROPINE MESYLATE 1 MG TABLET PO SCH (08:54)
[2017-09-29] MEDS: ARIPiprazole 10 MG TABLET PO SCH (08:54)
[2017-09-29] MEDS: TOPIRAMATE 100 MG TABLET PO SCH ×2 (08:55→16:57)
[2017-09-29] MEDS: NICOTINE 21 MG/24 HOUR PATCH TD SCH (09:00)
[2017-09-29] MEDS: MAGNESIUM SULFATE 454 GM BOX PO SCH ×3 (09:00→16:58)
[2017-09-29] MEDS: LORazepam 2 MG TABLET PO PRN (11:52)
[2017-09-29 16:30] VITALS: BP 119/73
[2017-09-29] MEDS: DIVALPROEX SODIUM 500 MG ER TABLET PO SCH (20:35)
[2017-09-30] MEDS: CLINDAMYCIN HCL 300 MG CAPSULE PO SCH ×4 (00:13→23:09)
[2017-09-30] MEDS: LEVOTHYROXINE SODIUM 50 MCG TABLET PO SCH (07:04)
[2017-09-30] MEDS: ARIPiprazole 10 MG TABLET PO SCH (08:59)
[2017-09-30] MEDS: TOPIRAMATE 100 MG TABLET PO SCH ×2 (08:59→17:14)
[2017-09-30] MEDS: BENZTROPINE MESYLATE 1 MG TABLET PO SCH (08:59)
[2017-09-30] MEDS: MAGNESIUM SULFATE 454 GM BOX PO SCH ×3 (09:00→17:13)
[2017-09-30] MEDS: NICOTINE 21 MG/24 HOUR PATCH TD SCH (09:04)
[2017-09-30 09:10] VITALS: BP 99/54
[2017-09-30] MEDS: IBUPROFEN 600 MG TABLET PO PRN (12:55)
[2017-09-30 16:00] VITALS: BP 109/73
[2017-09-30] MEDS: DIVALPROEX SODIUM 500 MG ER TABLET PO SCH (20:56)
[2017-09-30] MEDS: ZOLPIDEM TARTRATE 10 MG TABLET PO PRN (22:05)
[2017-10-01] MEDS: CLINDAMYCIN HCL 300 MG CAPSULE PO SCH (06:41)
[2017-10-01] MEDS: LEVOTHYROXINE SODIUM 50 MCG TABLET PO SCH (06:41)
[2017-10-01] MEDS: ARIPiprazole 10 MG TABLET PO SCH (08:52)
[2017-10-01] MEDS: BENZTROPINE MESYLATE 1 MG TABLET PO SCH (08:52)
[2017-10-01] MEDS: TOPIRAMATE 100 MG TABLET PO SCH ×2 (08:52→16:39)
[2017-10-01] MEDS: NICOTINE 21 MG/24 HOUR PATCH TD SCH ×2 (08:56→10:16)
[2017-10-01] MEDS: MAGNESIUM SULFATE 454 GM BOX PO SCH ×3 (08:56→16:39)
[2017-10-01 10:51] VITALS: BP 123/79
[2017-10-01] MEDS: LORazepam 2 MG TABLET PO PRN (12:49)
[2017-10-01 15:06] VITALS: BP 118/82
[2017-10-01] MEDS: IBUPROFEN 800 MG TABLET PO PRN (15:09)
[2017-10-01 17:51] VITALS: BP 105/69
[2017-10-01] MEDS: DIVALPROEX SODIUM 500 MG ER TABLET PO SCH (21:05)
[2017-10-02] MEDS: LEVOTHYROXINE SODIUM 50 MCG TABLET PO SCH (07:03)
[2017-10-02 08:08] VITALS: BP 108/72
[2017-10-02] MEDS: ARIPiprazole 10 MG TABLET PO SCH (09:27)
[2017-10-02] MEDS: NICOTINE 21 MG/24 HOUR PATCH TD SCH (09:27)
[2017-10-02] MEDS: TOPIRAMATE 100 MG TABLET PO SCH ×2 (09:27→16:02)
[2017-10-02] MEDS: BENZTROPINE MESYLATE 1 MG TABLET PO SCH (09:27)
[2017-10-02] MEDS: MAGNESIUM SULFATE 454 GM BOX PO SCH ×3 (09:28→16:05)
[2017-10-02 16:03] VITALS: BP 101/77
[2017-10-02] MEDS: IBUPROFEN 800 MG TABLET PO PRN (16:03)
[2017-10-02 16:04] VITALS: BP 101/77
[2017-10-02] MEDS: DIVALPROEX SODIUM 500 MG ER TABLET PO SCH (20:51)
[2017-10-03] MEDS: LEVOTHYROXINE SODIUM 50 MCG TABLET PO SCH (06:53)
[2017-10-03] MEDS ORDERED: MAGNESIUM SULFATE 454 GM BOX PO PRN (09:00)
[2017-10-03] MEDS: BENZTROPINE MESYLATE 1 MG TABLET PO SCH (09:14)
[2017-10-03] MEDS: TOPIRAMATE 100 MG TABLET PO SCH ×2 (09:15→17:48)
[2017-10-03] MEDS: ARIPiprazole 10 MG TABLET PO SCH (09:15)
[2017-10-03] MEDS: NICOTINE 21 MG/24 HOUR PATCH TD SCH (09:28)
[2017-10-03 16:30] VITALS: BP 112/71
[2017-10-03] MEDS: DIVALPROEX SODIUM 500 MG ER TABLET PO SCH (20:22)
[2017-10-04] MEDS: LEVOTHYROXINE SODIUM 50 MCG TABLET PO SCH (06:36)
[2017-10-04 08:58] VITALS: BP 110/61
[2017-10-04] MEDS: TOPIRAMATE 100 MG TABLET PO SCH ×2 (10:45→16:38)
[2017-10-04] MEDS: BENZTROPINE MESYLATE 1 MG TABLET PO SCH (10:45)
[2017-10-04] MEDS: ARIPiprazole 10 MG TABLET PO SCH (10:45)
[2017-10-04] MEDS: NICOTINE 21 MG/24 HOUR PATCH TD SCH (10:45)
[2017-10-04] MEDS: IBUPROFEN 800 MG TABLET PO PRN (16:38)
[2017-10-04 16:39] VITALS: BP 120/70
[2017-10-04] MEDS: ZOLPIDEM TARTRATE 10 MG TABLET PO PRN (20:08)
[2017-10-04] MEDS: DIVALPROEX SODIUM 500 MG ER TABLET PO SCH (20:08)
[2017-10-05] MEDS: LEVOTHYROXINE SODIUM 50 MCG TABLET PO SCH (06:54)
[2017-10-05 08:00] VITALS: BP 96/68
[2017-10-05] MEDS: ARIPiprazole 10 MG TABLET PO SCH (10:57)
[2017-10-05] MEDS: TOPIRAMATE 100 MG TABLET PO SCH ×2 (10:57→17:05)
[2017-10-05] MEDS: NICOTINE 21 MG/24 HOUR PATCH TD SCH (10:59)
[2017-10-05] MEDS: BENZTROPINE MESYLATE 1 MG TABLET PO SCH (10:59)
[2017-10-05 17:04] VITALS: BP 103/74
[2017-10-05] MEDS: DIVALPROEX SODIUM 500 MG ER TABLET PO SCH (20:57)
[2017-10-06] MEDS: LEVOTHYROXINE SODIUM 50 MCG TABLET PO SCH (06:20)
[2017-10-06 08:15] VITALS: BP 130/82
[2017-10-06] MEDS: BENZTROPINE MESYLATE 1 MG TABLET PO SCH (09:19)
[2017-10-06] MEDS: ARIPiprazole 10 MG TABLET PO SCH (09:20)
[2017-10-06] MEDS: TOPIRAMATE 100 MG TABLET PO SCH ×2 (09:20→18:00)
[2017-10-06] MEDS: NICOTINE 21 MG/24 HOUR PATCH TD SCH (09:20)
[2017-10-06] MEDS ORDERED: DiphenhydrAMINE HCL 50 MG/ML VIAL ONE (11:06)
[2017-10-06] MEDS ORDERED: LORazepam 2 MG/ML VIAL ONE (11:06)
[2017-10-06] MEDS ORDERED: DiphenhydrAMINE HCL 50 MG/ML VIAL IM ONE (11:15)
[2017-10-06] MEDS ORDERED: HALOPERIDOL LACTATE 5 MG/ML VIAL IM ONE (11:15)
[2017-10-06] MEDS ORDERED: LORazepam 2 MG/ML VIAL IM ONE (11:15)
[2017-10-06 17:21] VITALS: BP 98/58
[2017-10-06] MEDS: DIVALPROEX SODIUM 500 MG ER TABLET PO SCH (21:54)
[2017-10-07] MEDS: LEVOTHYROXINE SODIUM 50 MCG TABLET PO SCH (07:18)
[2017-10-07] MEDS: BENZTROPINE MESYLATE 1 MG TABLET PO SCH (08:09)
[2017-10-07] MEDS: ARIPiprazole 10 MG TABLET PO SCH (08:10)
[2017-10-07] MEDS: NICOTINE 21 MG/24 HOUR PATCH TD SCH (09:00)
[2017-10-07] MEDS: LORazepam 2 MG TABLET PO PRN (10:48)
[2017-10-07 16:00] VITALS: BP 104/63
[2017-10-07] MEDS: DIVALPROEX SODIUM 500 MG ER TABLET PO SCH (21:28)
[2017-10-08] MEDS: LEVOTHYROXINE SODIUM 50 MCG TABLET PO SCH (06:41)
[2017-10-08 08:00] VITALS: BP 106/63
[2017-10-08] MEDS: NICOTINE 21 MG/24 HOUR PATCH TD SCH (09:00)
[2017-10-08] MEDS: BENZTROPINE MESYLATE 1 MG TABLET PO SCH (10:27)
[2017-10-08] MEDS: ARIPiprazole 10 MG TABLET PO SCH (10:27)
[2017-10-08 16:00] VITALS: BP 139/67
[2017-10-08] MEDS: LORazepam 2 MG TABLET PO PRN (18:59)
[2017-10-08] MEDS: DIVALPROEX SODIUM 500 MG ER TABLET PO SCH (19:57)
[2017-10-09] MEDS: LEVOTHYROXINE SODIUM 50 MCG TABLET PO SCH (06:49)
[2017-10-09] MEDS: ARIPiprazole 10 MG TABLET PO SCH (10:59)
[2017-10-09] MEDS: BENZTROPINE MESYLATE 1 MG TABLET PO SCH (10:59)
[2017-10-09] MEDS: LORazepam 2 MG TABLET PO PRN (12:02)
[2017-10-09 17:03] VITALS: BP 121/72
[2017-10-09] MEDS: DIVALPROEX SODIUM 500 MG ER TABLET PO SCH (21:52)
[2017-10-10] MEDS: LEVOTHYROXINE SODIUM 50 MCG TABLET PO SCH (06:50)
[2017-10-10 08:00] VITALS: BP 102/63
[2017-10-10] MEDS: ARIPiprazole 10 MG TABLET PO SCH (08:16)
[2017-10-10] MEDS: BENZTROPINE MESYLATE 1 MG TABLET PO SCH (08:16)
[2017-10-10 10:55] VITALS: BP 102/63
[2017-10-10] MEDS: ACETAMINOPHEN 325 MG TABLET PO PRN (10:59)
[2017-10-10] MEDS: LORazepam 2 MG TABLET PO PRN (12:02)
[2017-10-10 20:20] VITALS: BP 109/62
[2017-10-10] MEDS: DIVALPROEX SODIUM 500 MG ER TABLET PO SCH (21:15)
[2017-10-11 00:05] VITALS: BP 116/75
[2017-10-11] MEDS: LEVOTHYROXINE SODIUM 50 MCG TABLET PO SCH (06:57)
[2017-10-11 06:59] LABS: BAND NEUTROPHILS % (MANUAL) 0 % (0-5)
[2017-10-11 07:14] LABS: HEMATOCRIT 43.2 % (41-53); HEMOGLOBIN 15.4 g/dL (13.5-17.5); MEAN CORPUSCULAR HEMOGLOBIN 33.2 pg (26.0-34.0); MEAN CORPUSCULAR HGB CONC 35.6 G/dL (31.0-37.0); MEAN CORPUSCULAR VOLUME 93 fL (80-100); PLATELET COUNT (AUTO) 161 K/uL (150-450); RED BLOOD CELL COUNT(AUTO) 4.64 MIL/uL (4.50-5.90); RED CELL DISTRIBUTION WIDTH 13.4 % (11.5-14.5)
[2017-10-11 08:00] VITALS: BP 117/56
[2017-10-11 08:00] LABS: ANION GAP 5 mmol/L (8-16); CALCIUM, TOTAL 8.7 mg/dL (8.8-10.5); CARBON DIOXIDE 31 mmol/L (22-29); CHLORIDE 105 mmol/L (98-107); CHOL/HDL RATIO 2.9 (4.2-7.3); CHOLESTEROL 124 mg/dL (131-200); CREATININE 0.99 mg/dL (0.60-1.30); GLOMERULAR FILTR. RATE CALC > 60 mL/min (>60); GLUCOSE,RANDOM 81 mg/dL (70-110); HDL CHOLESTEROL 43 mg/dL (40-60); LDL CHOL (CALC.) 69 mg/dL (0-130); PHOSPHORUS 4.3 mg/dL (2.5-4.9); POTASSIUM 4.2 mmol/L (3.5-5.1); SODIUM SERUM 141 mmol/L (136-145); THYROID STIMULATING HORMONE 3.71 uIU/mL (0.36-3.74); TRIGLYCERIDES 60 mg/dL (15-150); UREA NITROGEN, BLOOD 17 mg/dL (7-18); VALPROIC ACID 78 mcg/mL (50-100)
[2017-10-11] MEDS: ARIPiprazole 10 MG TABLET PO SCH (08:16)
[2017-10-11] MEDS: BENZTROPINE MESYLATE 1 MG TABLET PO SCH (08:16)
[2017-10-11 10:12] LABS: EOSINOPHILS % (MANUAL) 3 % (1-6); LYMPHOCYTES % (MANUAL) 47 % (22-44); MONOCYTES % (MANUAL) 5 % (2-9); SEGMENTED NEUTROPHILS % 45 % (40-70)
[2017-10-11 16:00] VITALS: BP 109/62
[2017-10-11] MEDS: DIVALPROEX SODIUM 500 MG ER TABLET PO SCH (20:51)
[2017-10-11] MEDS: ZOLPIDEM TARTRATE 10 MG TABLET PO PRN (22:00)
[2017-10-12] MEDS: LEVOTHYROXINE SODIUM 50 MCG TABLET PO SCH (06:57)
[2017-10-12 08:30] VITALS: BP 98/68
[2017-10-12] MEDS: BENZTROPINE MESYLATE 1 MG TABLET PO SCH (10:05)
[2017-10-12] MEDS: ARIPiprazole 10 MG TABLET PO SCH (10:05)
[2017-10-12 16:00] VITALS: BP 117/71
[2017-10-12] MEDS: DIVALPROEX SODIUM 500 MG ER TABLET PO SCH (21:01)
[2017-10-13] MEDS: LEVOTHYROXINE SODIUM 50 MCG TABLET PO SCH (06:50)
[2017-10-13] MEDS: ARIPiprazole 10 MG TABLET PO SCH (08:36)
[2017-10-13] MEDS: BENZTROPINE MESYLATE 1 MG TABLET PO SCH (08:37)
[2017-10-13 08:39] VITALS: BP 129/69
[2017-10-13 16:43] VITALS: BP 113/70
[2017-10-13] MEDS: LORazepam 2 MG TABLET PO PRN (19:24)
[2017-10-13] MEDS: DIVALPROEX SODIUM 500 MG ER TABLET PO SCH (20:21)
[2017-10-14] MEDS: LEVOTHYROXINE SODIUM 50 MCG TABLET PO SCH (06:51)
[2017-10-14 08:00] VITALS: BP 103/52
[2017-10-14] MEDS: BENZTROPINE MESYLATE 1 MG TABLET PO SCH (08:21)
[2017-10-14] MEDS: ARIPiprazole 10 MG TABLET PO SCH (08:21)
[2017-10-14 16:00] VITALS: BP 114/72
[2017-10-14] MEDS: DIVALPROEX SODIUM 500 MG ER TABLET PO SCH (20:45)
[2017-10-14] MEDS: ZOLPIDEM TARTRATE 10 MG TABLET PO PRN (21:10)
[2017-10-15] MEDS: LEVOTHYROXINE SODIUM 50 MCG TABLET PO SCH (06:30)
[2017-10-15 08:00] VITALS: BP 114/64
[2017-10-15] MEDS: ARIPiprazole 10 MG TABLET PO SCH (11:30)
[2017-10-15] MEDS: BENZTROPINE MESYLATE 1 MG TABLET PO SCH (11:30)
[2017-10-15] MEDS: LORazepam 2 MG TABLET PO PRN (11:50)
[2017-10-15 16:30] VITALS: BP 117/68
[2017-10-15] MEDS: ZOLPIDEM TARTRATE 10 MG TABLET PO PRN (21:08)
[2017-10-15] MEDS: DIVALPROEX SODIUM 500 MG ER TABLET PO SCH (21:08)
[2017-10-16] MEDS: LEVOTHYROXINE SODIUM 50 MCG TABLET PO SCH (06:56)
[2017-10-16] MEDS: BENZTROPINE MESYLATE 1 MG TABLET PO SCH (08:46)
[2017-10-16] MEDS: ARIPiprazole 10 MG TABLET PO SCH (08:47)
[2017-10-16] MEDS: LORazepam 2 MG TABLET PO PRN (18:26)
[2017-10-16] MEDS: DIVALPROEX SODIUM 500 MG ER TABLET PO SCH (21:32)
[2017-10-16 21:47] VITALS: BP 119/71
[2017-10-17] MEDS: LEVOTHYROXINE SODIUM 50 MCG TABLET PO SCH (06:58)
[2017-10-17 08:00] VITALS: BP 138/74
[2017-10-17] MEDS: ARIPiprazole 10 MG TABLET PO SCH (09:11)
[2017-10-17] MEDS: MULTIVITAMINS WITH MINERALS, THERAPEUTIC TABLET PO SCH (09:12)
[2017-10-17] MEDS: BENZTROPINE MESYLATE 1 MG TABLET PO SCH (09:12)
[2017-10-17] MEDS: LORazepam 2 MG TABLET PO PRN (10:50)
[2017-10-17 16:50] VITALS: BP 128/79
[2017-10-17] MEDS: DIVALPROEX SODIUM 500 MG ER TABLET PO SCH (20:24)
[2017-10-18] MEDS: LEVOTHYROXINE SODIUM 50 MCG TABLET PO SCH (06:49)
[2017-10-18 08:48] VITALS: BP_SYST 103
[2017-10-18] MEDS: ARIPiprazole 10 MG TABLET PO SCH (09:32)
[2017-10-18] MEDS: BENZTROPINE MESYLATE 1 MG TABLET PO SCH (09:33)
[2017-10-18] MEDS: MULTIVITAMINS WITH MINERALS, THERAPEUTIC TABLET PO SCH (09:33)
[2017-10-18] MEDS: LORazepam 2 MG TABLET PO PRN (10:54)
[2017-10-18 20:13] VITALS: BP 124/77
[2017-10-18] MEDS: DIVALPROEX SODIUM 500 MG ER TABLET PO SCH (21:02)
[2017-10-18] MEDS: ZOLPIDEM TARTRATE 10 MG TABLET PO PRN (22:00)
[2017-10-19] MEDS: LEVOTHYROXINE SODIUM 50 MCG TABLET PO SCH (06:52)
[2017-10-19 08:00] VITALS: BP 91/52
[2017-10-19] MEDS: BENZTROPINE MESYLATE 1 MG TABLET PO SCH (08:22)
[2017-10-19] MEDS: ARIPiprazole 10 MG TABLET PO SCH (08:22)
[2017-10-19] MEDS: MULTIVITAMINS WITH MINERALS, THERAPEUTIC TABLET PO SCH (08:22)
[2017-10-19 16:00] VITALS: BP 102/65
[2017-10-19] MEDS: ZOLPIDEM TARTRATE 10 MG TABLET PO PRN (21:31)
[2017-10-19] MEDS: DIVALPROEX SODIUM 500 MG ER TABLET PO SCH (21:31)
[2017-10-20] MEDS: LEVOTHYROXINE SODIUM 50 MCG TABLET PO SCH (06:55)
[2017-10-20] MEDS: BENZTROPINE MESYLATE 1 MG TABLET PO SCH (09:00)
[2017-10-20] MEDS: MULTIVITAMINS WITH MINERALS, THERAPEUTIC TABLET PO SCH (09:00)
[2017-10-20] MEDS: ARIPiprazole 10 MG TABLET PO SCH (09:00)
[2017-10-20 09:48] VITALS: BP 122/87
[2017-10-20] MEDS: LORazepam 2 MG TABLET PO PRN ×2 (12:03→20:37)
[2017-10-20] MEDS: DIVALPROEX SODIUM 500 MG ER TABLET PO SCH (20:37)
[2017-10-20] MEDS: ZOLPIDEM TARTRATE 10 MG TABLET PO PRN (21:42)
[2017-10-20 21:50] VITALS: BP 105/70
[2017-10-21] MEDS: LEVOTHYROXINE SODIUM 50 MCG TABLET PO SCH (06:54)
[2017-10-21] MEDS: BENZTROPINE MESYLATE 1 MG TABLET PO SCH (07:57)
[2017-10-21] MEDS: MULTIVITAMINS WITH MINERALS, THERAPEUTIC TABLET PO SCH (07:57)
[2017-10-21] MEDS: ARIPiprazole 10 MG TABLET PO SCH (07:58)
[2017-10-21 08:00] VITALS: BP 122/75
[2017-10-21] MEDS: LORazepam 2 MG TABLET PO PRN (08:56)
[2017-10-21 18:12] VITALS: BP 118/78
[2017-10-21] MEDS: DIVALPROEX SODIUM 500 MG ER TABLET PO SCH (20:20)
[2017-10-22] MEDS: LEVOTHYROXINE SODIUM 50 MCG TABLET PO SCH (06:55)
[2017-10-22] MEDS: BENZTROPINE MESYLATE 1 MG TABLET PO SCH (08:35)
[2017-10-22] MEDS: ARIPiprazole 10 MG TABLET PO SCH (08:36)
[2017-10-22] MEDS: MULTIVITAMINS WITH MINERALS, THERAPEUTIC TABLET PO SCH (08:36)
[2017-10-22 10:30] VITALS: BP 100/63
[2017-10-22] MEDS: LORazepam 2 MG TABLET PO PRN (14:06)
[2017-10-22 16:36] VITALS: BP 111/67
[2017-10-22] MEDS: DIVALPROEX SODIUM 500 MG ER TABLET PO SCH (21:36)
[2017-10-23] MEDS: LEVOTHYROXINE SODIUM 50 MCG TABLET PO SCH (06:31)
[2017-10-23 08:24] VITALS: BP 93/60
[2017-10-23 08:25] VITALS: BP 91/86
[2017-10-23] MEDS: ARIPiprazole 10 MG TABLET PO SCH (08:43)
[2017-10-23] MEDS: BENZTROPINE MESYLATE 1 MG TABLET PO SCH (08:45)
[2017-10-23] MEDS: MULTIVITAMINS WITH MINERALS, THERAPEUTIC TABLET PO SCH (08:45)
[2017-10-23] MEDS: LORazepam 2 MG TABLET PO PRN (15:42)
[2017-10-23 16:26] VITALS: BP 121/67
[2017-10-23] MEDS: ZOLPIDEM TARTRATE 10 MG TABLET PO PRN ×2 (21:07→21:37)
[2017-10-23] MEDS: DIVALPROEX SODIUM 500 MG ER TABLET PO SCH (21:08)
[2017-10-24] MEDS: LEVOTHYROXINE SODIUM 50 MCG TABLET PO SCH (06:36)
[2017-10-24 08:31] VITALS: BP 92/56
[2017-10-24 08:34] VITALS: BP 92/56
[2017-10-24] MEDS: ARIPiprazole 10 MG TABLET PO SCH (08:59)
[2017-10-24] MEDS: BENZTROPINE MESYLATE 1 MG TABLET PO SCH (08:59)
[2017-10-24] MEDS: MULTIVITAMINS WITH MINERALS, THERAPEUTIC TABLET PO SCH (08:59)
[2017-10-24 18:55] VITALS: BP 117/72
[2017-10-24] MEDS: LORazepam 2 MG TABLET PO PRN (19:00)
[2017-10-24] MEDS: DIVALPROEX SODIUM 500 MG ER TABLET PO SCH (21:42)
[2017-10-24] MEDS: ZOLPIDEM TARTRATE 10 MG TABLET PO PRN (22:05)
[2017-10-25] MEDS: LEVOTHYROXINE SODIUM 50 MCG TABLET PO SCH (06:59)
[2017-10-25 08:05] VITALS: BP 103/67
[2017-10-25] MEDS: BENZTROPINE MESYLATE 1 MG TABLET PO SCH (08:43)
[2017-10-25] MEDS: MULTIVITAMINS WITH MINERALS, THERAPEUTIC TABLET PO SCH (08:43)
[2017-10-25] MEDS: ARIPiprazole 10 MG TABLET PO SCH (08:44)
[2017-10-25] MEDS: LORazepam 2 MG TABLET PO PRN (14:37)
[2017-10-25 21:13] VITALS: BP 115/76
[2017-10-25] MEDS: DIVALPROEX SODIUM 500 MG ER TABLET PO SCH (21:20)
[2017-10-25] MEDS: ZOLPIDEM TARTRATE 10 MG TABLET PO PRN (21:36)
[2017-10-26 01:35] VITALS: BP 113/76
[2017-10-26] MEDS: LEVOTHYROXINE SODIUM 50 MCG TABLET PO SCH (06:59)
[2017-10-26 08:24] VITALS: BP 117/64
[2017-10-26] MEDS: BENZTROPINE MESYLATE 1 MG TABLET PO SCH (08:48)
[2017-10-26] MEDS: MULTIVITAMINS WITH MINERALS, THERAPEUTIC TABLET PO SCH (08:48)
[2017-10-26] MEDS: ARIPiprazole 10 MG TABLET PO SCH (08:48)
[2017-10-26] MEDS: LORazepam 2 MG TABLET PO PRN (13:57)
[2017-10-26 16:54] VITALS: BP 120/74
[2017-10-26] MEDS: DIVALPROEX SODIUM 500 MG ER TABLET PO SCH (21:30)
[2017-10-26] MEDS: ZOLPIDEM TARTRATE 10 MG TABLET PO PRN (21:30)
[2017-10-27] MEDS: LEVOTHYROXINE SODIUM 50 MCG TABLET PO SCH (06:49)
[2017-10-27 08:00] VITALS: BP 112/58
[2017-10-27] MEDS: BENZTROPINE MESYLATE 1 MG TABLET PO SCH (08:31)
[2017-10-27] MEDS: ARIPiprazole 10 MG TABLET PO SCH (08:31)
[2017-10-27] MEDS: MULTIVITAMINS WITH MINERALS, THERAPEUTIC TABLET PO SCH (08:32)
[2017-10-27] MEDS: PROPRANOLOL HCL 10 MG TABLET PO SCH ×2 (13:24→15:54)
[2017-10-27] MEDS: LORazepam 2 MG TABLET PO PRN (15:57)
[2017-10-27 16:44] VITALS: BP 150/89
[2017-10-27] MEDS: DIVALPROEX SODIUM 500 MG ER TABLET PO SCH (20:25)
[2017-10-27] MEDS: ZOLPIDEM TARTRATE 10 MG TABLET PO PRN (21:08)
[2017-10-28 02:12] VITALS: BP 138/78
[2017-10-28] MEDS: LEVOTHYROXINE SODIUM 50 MCG TABLET PO SCH (07:03)
[2017-10-28 08:45] VITALS: BP 122/66
[2017-10-28] MEDS: ARIPiprazole 10 MG TABLET PO SCH (10:42)
[2017-10-28] MEDS: PROPRANOLOL HCL 10 MG TABLET PO SCH ×3 (10:42→18:25)
[2017-10-28] MEDS: MULTIVITAMINS WITH MINERALS, THERAPEUTIC TABLET PO SCH (10:42)
[2017-10-28] MEDS: LORazepam 2 MG TABLET PO PRN (14:09)
[2017-10-28] MEDS: DIVALPROEX SODIUM 500 MG ER TABLET PO SCH (21:47)
[2017-10-29] MEDS: LEVOTHYROXINE SODIUM 50 MCG TABLET PO SCH (06:36)
[2017-10-29] MEDS: MULTIVITAMINS WITH MINERALS, THERAPEUTIC TABLET PO SCH (08:32)
[2017-10-29] MEDS: PROPRANOLOL HCL 10 MG TABLET PO SCH ×3 (08:32→16:13)
[2017-10-29] MEDS: ARIPiprazole 10 MG TABLET PO SCH (08:33)
[2017-10-29 08:52] VITALS: BP 113/67
[2017-10-29] MEDS: LORazepam 2 MG TABLET PO PRN (13:08)
[2017-10-29 17:00] VITALS: BP 115/74
[2017-10-29] MEDS: DIVALPROEX SODIUM 500 MG ER TABLET PO SCH (20:52)
[2017-10-30] MEDS: LEVOTHYROXINE SODIUM 50 MCG TABLET PO SCH (06:24)
[2017-10-30 08:45] VITALS: BP 109/54
[2017-10-30] MEDS: MULTIVITAMINS WITH MINERALS, THERAPEUTIC TABLET PO SCH (08:49)
[2017-10-30] MEDS: ARIPiprazole 10 MG TABLET PO SCH (08:50)
[2017-10-30] MEDS: PROPRANOLOL HCL 10 MG TABLET PO SCH ×3 (08:51→16:15)
[2017-10-30 16:53] VITALS: BP 129/64
[2017-10-30] MEDS: LORazepam 2 MG TABLET PO PRN (19:49)
[2017-10-30] MEDS: DIVALPROEX SODIUM 500 MG ER TABLET PO SCH (20:03)
[2017-10-31] MEDS: LEVOTHYROXINE SODIUM 50 MCG TABLET PO SCH (06:47)
[2017-10-31 08:32] VITALS: BP 128/72
[2017-10-31] MEDS: PROPRANOLOL HCL 10 MG TABLET PO SCH ×3 (08:42→16:25)
[2017-10-31] MEDS: ARIPiprazole 10 MG TABLET PO SCH (08:42)
[2017-10-31] MEDS: MULTIVITAMINS WITH MINERALS, THERAPEUTIC TABLET PO SCH (08:42)
[2017-10-31 16:15] VITALS: BP 111/70
[2017-10-31] MEDS: DIVALPROEX SODIUM 500 MG ER TABLET PO SCH (20:29)
[2017-10-31] MEDS: ZOLPIDEM TARTRATE 10 MG TABLET PO PRN (23:05)
[2017-11-01 04:55] VITALS: BP 117/79
[2017-11-01] MEDS: LORazepam 2 MG TABLET PO PRN (05:00)
[2017-11-01] MEDS: LEVOTHYROXINE SODIUM 50 MCG TABLET PO SCH (06:53)
[2017-11-01] MEDS: ARIPiprazole 10 MG TABLET PO SCH (08:12)
[2017-11-01] MEDS: MULTIVITAMINS WITH MINERALS, THERAPEUTIC TABLET PO SCH (08:13)
[2017-11-01] MEDS: PROPRANOLOL HCL 10 MG TABLET PO SCH ×3 (08:13→18:00)
[2017-11-01 08:30] VITALS: BP 132/82
[2017-11-01 16:47] VITALS: BP 113/83
[2017-11-01] MEDS: DIVALPROEX SODIUM 500 MG ER TABLET PO SCH (21:50)
[2017-11-02] MEDS: LEVOTHYROXINE SODIUM 50 MCG TABLET PO SCH (06:58)
[2017-11-02] MEDS: MULTIVITAMINS WITH MINERALS, THERAPEUTIC TABLET PO SCH (08:46)
[2017-11-02] MEDS: ARIPiprazole 10 MG TABLET PO SCH (08:46)
[2017-11-02 08:49] VITALS: BP 94/55
[2017-11-02] MEDS: PROPRANOLOL HCL 10 MG TABLET PO SCH ×3 (09:00→16:34)
[2017-11-02 12:31] VITALS: BP 122/73
[2017-11-02 16:00] VITALS: BP 116/62
[2017-11-02] MEDS: LORazepam 2 MG TABLET PO PRN (16:34)
[2017-11-02] MEDS: DIVALPROEX SODIUM 500 MG ER TABLET PO SCH (21:35)
[2017-11-02] MEDS: ZOLPIDEM TARTRATE 10 MG TABLET PO PRN (21:35)
[2017-11-03] MEDS: LEVOTHYROXINE SODIUM 50 MCG TABLET PO SCH (06:53)
[2017-11-03 08:00] VITALS: BP 109/63
[2017-11-03] MEDS: MULTIVITAMINS WITH MINERALS, THERAPEUTIC TABLET PO SCH (08:23)
[2017-11-03] MEDS: ARIPiprazole 10 MG TABLET PO SCH (08:23)
[2017-11-03] MEDS: PROPRANOLOL HCL 10 MG TABLET PO SCH ×3 (08:23→16:25)
[2017-11-03 14:26] VITALS: BP 107/67
[2017-11-03] MEDS: LORazepam 2 MG TABLET PO PRN (14:29)
[2017-11-03 16:10] VITALS: BP 120/68
[2017-11-03] MEDS: DIVALPROEX SODIUM 500 MG ER TABLET PO SCH (20:59)
[2017-11-04] MEDS: ZOLPIDEM TARTRATE 10 MG TABLET PO PRN (00:22)
[2017-11-04 05:59] VITALS: BP 109/78
[2017-11-04] MEDS: LEVOTHYROXINE SODIUM 50 MCG TABLET PO SCH (06:47)
[2017-11-04] MEDS: ARIPiprazole 10 MG TABLET PO SCH (07:41)
[2017-11-04] MEDS: MULTIVITAMINS WITH MINERALS, THERAPEUTIC TABLET PO SCH (07:41)
[2017-11-04] MEDS: PROPRANOLOL HCL 10 MG TABLET PO SCH ×3 (07:41→16:02)
[2017-11-04 08:00] VITALS: BP 103/69
[2017-11-04 17:24] VITALS: BP 132/91
[2017-11-04] MEDS: DIVALPROEX SODIUM 500 MG ER TABLET PO SCH (21:16)
[2017-11-04] MEDS: LORazepam 2 MG TABLET PO PRN (22:37)
[2017-11-05 03:12] VITALS: BP 124/78
[2017-11-05] MEDS: LEVOTHYROXINE SODIUM 50 MCG TABLET PO SCH (06:52)
[2017-11-05] MEDS: MULTIVITAMINS WITH MINERALS, THERAPEUTIC TABLET PO SCH (08:26)
[2017-11-05] MEDS: ARIPiprazole 10 MG TABLET PO SCH (08:26)
[2017-11-05] MEDS: PROPRANOLOL HCL 10 MG TABLET PO SCH ×3 (08:26→17:04)
[2017-11-05 08:27] VITALS: BP 133/82
[2017-11-05 16:34] VITALS: BP 127/79
[2017-11-05] MEDS: DIVALPROEX SODIUM 500 MG ER TABLET PO SCH (21:56)
[2017-11-05] MEDS: LORazepam 2 MG TABLET PO PRN (21:56)
[2017-11-05] MEDS: ZOLPIDEM TARTRATE 10 MG TABLET PO PRN (23:59)
[2017-11-06] MEDS: LEVOTHYROXINE SODIUM 50 MCG TABLET PO SCH (06:07)
[2017-11-06 08:00] VITALS: BP 112/78
[2017-11-06] MEDS: PROPRANOLOL HCL 10 MG TABLET PO SCH ×3 (09:09→16:42)
[2017-11-06] MEDS: ARIPiprazole 10 MG TABLET PO SCH (09:09)
[2017-11-06] MEDS: MULTIVITAMINS WITH MINERALS, THERAPEUTIC TABLET PO SCH (09:09)
[2017-11-06 16:19] VITALS: BP 130/77
[2017-11-06] MEDS: LORazepam 2 MG TABLET PO PRN ×2 (16:52→23:45)
[2017-11-06] MEDS: DIVALPROEX SODIUM 500 MG ER TABLET PO SCH (22:00)
[2017-11-07 01:07] VITALS: BP 120/81
[2017-11-07] MEDS: ZOLPIDEM TARTRATE 10 MG TABLET PO PRN (01:34)
[2017-11-07] MEDS: LORazepam 2 MG TABLET PO PRN (05:06)
[2017-11-07] MEDS: LEVOTHYROXINE SODIUM 50 MCG TABLET PO SCH (06:31)
[2017-11-07] MEDS: ARIPiprazole 10 MG TABLET PO SCH (08:17)
[2017-11-07] MEDS: PROPRANOLOL HCL 10 MG TABLET PO SCH ×3 (08:18→17:06)
[2017-11-07] MEDS: MULTIVITAMINS WITH MINERALS, THERAPEUTIC TABLET PO SCH (08:18)
[2017-11-07 08:43] VITALS: BP 125/85
[2017-11-07 17:45] VITALS: BP 127/76
[2017-11-07] MEDS: DIVALPROEX SODIUM 500 MG ER TABLET PO SCH (21:34)
[2017-11-08 01:30] VITALS: BP 107/60
[2017-11-08] MEDS: ZOLPIDEM TARTRATE 10 MG TABLET PO PRN (01:30)
[2017-11-08] MEDS: LORazepam 2 MG TABLET PO PRN ×4 (01:30→22:00)
[2017-11-08] MEDS: LEVOTHYROXINE SODIUM 50 MCG TABLET PO SCH (06:46)
[2017-11-08] MEDS: ARIPiprazole 10 MG TABLET PO SCH (07:52)
[2017-11-08] MEDS: MULTIVITAMINS WITH MINERALS, THERAPEUTIC TABLET PO SCH (07:52)
[2017-11-08] MEDS: PROPRANOLOL HCL 10 MG TABLET PO SCH ×3 (07:52→18:06)
[2017-11-08 08:00] VITALS: BP 147/95
[2017-11-08 16:00] VITALS: BP 127/87
[2017-11-08] MEDS: DIVALPROEX SODIUM 500 MG ER TABLET PO SCH (21:29)
[2017-11-09] MEDS: LEVOTHYROXINE SODIUM 50 MCG TABLET PO SCH (06:51)
[2017-11-09 08:00] VITALS: BP 105/64
[2017-11-09] MEDS: MULTIVITAMINS WITH MINERALS, THERAPEUTIC TABLET PO SCH (08:41)
[2017-11-09] MEDS: ARIPiprazole 10 MG TABLET PO SCH (08:42)
[2017-11-09] MEDS: PROPRANOLOL HCL 10 MG TABLET PO SCH ×3 (08:42→17:19)
[2017-11-09 16:00] VITALS: BP 120/76
[2017-11-09] MEDS: DIVALPROEX SODIUM 500 MG ER TABLET PO SCH (20:37)
[2017-11-09] MEDS: LORazepam 2 MG TABLET PO PRN (21:35)
[2017-11-10] MEDS: LEVOTHYROXINE SODIUM 50 MCG TABLET PO SCH (06:44)
[2017-11-10 08:44] VITALS: BP 108/65
[2017-11-10] MEDS: ARIPiprazole 10 MG TABLET PO SCH (08:46)
[2017-11-10] MEDS: MULTIVITAMINS WITH MINERALS, THERAPEUTIC TABLET PO SCH (08:46)
[2017-11-10] MEDS: PROPRANOLOL HCL 10 MG TABLET PO SCH ×3 (08:47→16:34)
[2017-11-10 16:30] VITALS: BP 110/73
[2017-11-10] MEDS: DIVALPROEX SODIUM 500 MG ER TABLET PO SCH (20:54)
[2017-11-11] MEDS: LEVOTHYROXINE SODIUM 50 MCG TABLET PO SCH (06:49)
[2017-11-11 08:22] VITALS: BP 107/65
[2017-11-11] MEDS: ARIPiprazole 10 MG TABLET PO SCH (11:45)
[2017-11-11] MEDS: MULTIVITAMINS WITH MINERALS, THERAPEUTIC TABLET PO SCH (11:45)
[2017-11-11] MEDS: PROPRANOLOL HCL 10 MG TABLET PO SCH ×3 (11:45→16:29)
[2017-11-11] MEDS: LORazepam 1 MG TABLET PO PRN (20:33)
[2017-11-11] MEDS: DIVALPROEX SODIUM 500 MG ER TABLET PO SCH (20:34)
[2017-11-11 20:53] VITALS: BP 110/70
[2017-11-12 00:48] VITALS: BP 129/84
[2017-11-12] MEDS: LEVOTHYROXINE SODIUM 50 MCG TABLET PO SCH (07:20)
[2017-11-12] MEDS: PROPRANOLOL HCL 10 MG TABLET PO SCH ×3 (08:23→17:34)
[2017-11-12] MEDS: ARIPiprazole 10 MG TABLET PO SCH (08:24)
[2017-11-12] MEDS: MULTIVITAMINS WITH MINERALS, THERAPEUTIC TABLET PO SCH (08:24)
[2017-11-12] MEDS: LORazepam 1 MG TABLET PO PRN (09:08)
[2017-11-12 09:15] VITALS: BP 147/91
[2017-11-12] MEDS: DIVALPROEX SODIUM 500 MG ER TABLET PO SCH (20:49)
[2017-11-13 04:17] VITALS: BP 115/76
[2017-11-13] MEDS: LORazepam 1 MG TABLET PO PRN (05:28)
[2017-11-13] MEDS: LEVOTHYROXINE SODIUM 50 MCG TABLET PO SCH (06:46)
[2017-11-13] MEDS: ARIPiprazole 10 MG TABLET PO SCH (09:06)
[2017-11-13] MEDS: PROPRANOLOL HCL 10 MG TABLET PO SCH ×3 (09:06→16:15)
[2017-11-13] MEDS: MULTIVITAMINS WITH MINERALS, THERAPEUTIC TABLET PO SCH (09:06)
[2017-11-13 09:21] VITALS: BP 144/73
[2017-11-13 17:00] VITALS: BP 134/81
[2017-11-13] MEDS: DIVALPROEX SODIUM 500 MG ER TABLET PO SCH (21:45)
[2017-11-14 02:26] VITALS: BP 128/80
[2017-11-14] MEDS: LORazepam 1 MG TABLET PO PRN (02:35)
[2017-11-14] MEDS: LEVOTHYROXINE SODIUM 50 MCG TABLET PO SCH (06:40)
[2017-11-14] MEDS: MULTIVITAMINS WITH MINERALS, THERAPEUTIC TABLET PO SCH (08:05)
[2017-11-14] MEDS: ARIPiprazole 10 MG TABLET PO SCH (08:05)
[2017-11-14] MEDS: PROPRANOLOL HCL 10 MG TABLET PO SCH ×3 (08:06→18:01)
[2017-11-14 08:30] VITALS: BP 140/68
[2017-11-14] MEDS: DIVALPROEX SODIUM 500 MG ER TABLET PO SCH (20:24)
[2017-11-15 06:09] VITALS: BP 128/71
[2017-11-15] MEDS: LEVOTHYROXINE SODIUM 50 MCG TABLET PO SCH (06:21)
[2017-11-15] MEDS: PROPRANOLOL HCL 10 MG TABLET PO SCH ×3 (08:37→16:23)
[2017-11-15] MEDS: MULTIVITAMINS WITH MINERALS, THERAPEUTIC TABLET PO SCH (08:37)
[2017-11-15] MEDS: ARIPiprazole 10 MG TABLET PO SCH (08:37)
[2017-11-15] MEDS: LORazepam 1 MG TABLET PO PRN (09:41)
[2017-11-15 10:09] VITALS: BP 158/69
[2017-11-15 17:37] VITALS: BP 129/55
[2017-11-15] MEDS: DIVALPROEX SODIUM 500 MG ER TABLET PO SCH (20:50)
[2017-11-16] MEDS: LEVOTHYROXINE SODIUM 50 MCG TABLET PO SCH (07:02)
[2017-11-16] MEDS: PROPRANOLOL HCL 10 MG TABLET PO SCH ×3 (08:26→17:00)
[2017-11-16] MEDS: MULTIVITAMINS WITH MINERALS, THERAPEUTIC TABLET PO SCH (08:26)
[2017-11-16] MEDS: ARIPiprazole 10 MG TABLET PO SCH (08:26)
[2017-11-16 08:41] VITALS: BP 137/78
[2017-11-16] MEDS: LORazepam 1 MG TABLET PO PRN (08:56)
[2017-11-16 17:27] VITALS: BP 68/55
[2017-11-16] MEDS: DIVALPROEX SODIUM 500 MG ER TABLET PO SCH (20:32)
[2017-11-17] MEDS: LEVOTHYROXINE SODIUM 50 MCG TABLET PO SCH (06:41)
[2017-11-17] MEDS: MULTIVITAMINS WITH MINERALS, THERAPEUTIC TABLET PO SCH (08:15)
[2017-11-17] MEDS: PROPRANOLOL HCL 10 MG TABLET PO SCH ×3 (08:15→17:00)
[2017-11-17] MEDS: ARIPiprazole 10 MG TABLET PO SCH (08:15)
[2017-11-17 12:12] VITALS: BP 121/77
[2017-11-17 18:15] VITALS: BP 114/64
[2017-11-17] MEDS: DIVALPROEX SODIUM 500 MG ER TABLET PO SCH (20:22)
[2017-11-18] MEDS: LEVOTHYROXINE SODIUM 50 MCG TABLET PO SCH (06:53)
[2017-11-18 08:05] VITALS: BP 115/73
[2017-11-18] MEDS: ARIPiprazole 10 MG TABLET PO SCH (08:33)
[2017-11-18] MEDS: PROPRANOLOL HCL 10 MG TABLET PO SCH ×3 (08:34→18:00)
[2017-11-18] MEDS: MULTIVITAMINS WITH MINERALS, THERAPEUTIC TABLET PO SCH (08:34)
[2017-11-18] MEDS: LORazepam 1 MG TABLET PO PRN (08:55)
[2017-11-18] MEDS: DIVALPROEX SODIUM 500 MG ER TABLET PO SCH (20:02)
[2017-11-19] MEDS: LEVOTHYROXINE SODIUM 50 MCG TABLET PO SCH (06:48)
[2017-11-19 08:30] VITALS: BP 110/70
[2017-11-19] MEDS: ARIPiprazole 10 MG TABLET PO SCH (08:35)
[2017-11-19] MEDS: MULTIVITAMINS WITH MINERALS, THERAPEUTIC TABLET PO SCH (08:35)
[2017-11-19] MEDS: PROPRANOLOL HCL 10 MG TABLET PO SCH ×3 (08:35→17:27)
[2017-11-19] MEDS: LORazepam 1 MG TABLET PO PRN (16:12)
[2017-11-19 17:19] VITALS: BP 124/74
[2017-11-19] MEDS: DIVALPROEX SODIUM 500 MG ER TABLET PO SCH (20:48)
[2017-11-20] MEDS: LEVOTHYROXINE SODIUM 50 MCG TABLET PO SCH (06:46)
[2017-11-20] MEDS: MULTIVITAMINS WITH MINERALS, THERAPEUTIC TABLET PO SCH (09:00)
[2017-11-20] MEDS: PROPRANOLOL HCL 10 MG TABLET PO SCH ×3 (09:00→16:37)
[2017-11-20] MEDS: ARIPiprazole 10 MG TABLET PO SCH (09:00)
[2017-11-20 09:42] VITALS: BP 116/73
[2017-11-20] MEDS: LORazepam 1 MG TABLET PO PRN (17:01)
[2017-11-20 18:11] VITALS: BP 126/71
[2017-11-20] MEDS: DIVALPROEX SODIUM 500 MG ER TABLET PO SCH (20:05)
[2017-11-21] MEDS: LEVOTHYROXINE SODIUM 50 MCG TABLET PO SCH (05:56)
[2017-11-21 08:05] VITALS: BP 122/88
[2017-11-21] MEDS: ARIPiprazole 10 MG TABLET PO SCH (10:43)
[2017-11-21] MEDS: PROPRANOLOL HCL 10 MG TABLET PO SCH ×3 (10:44→16:25)
[2017-11-21] MEDS: MULTIVITAMINS WITH MINERALS, THERAPEUTIC TABLET PO SCH (10:44)
[2017-11-21] MEDS: DIVALPROEX SODIUM 500 MG ER TABLET PO SCH (20:50)
[2017-11-22] MEDS: LEVOTHYROXINE SODIUM 50 MCG TABLET PO SCH (06:24)
[2017-11-22 07:13] LABS: HEMATOCRIT 45.4 % (41-53); HEMOGLOBIN 16.1 g/dL (13.5-17.5); MEAN CORPUSCULAR HEMOGLOBIN 33.4 pg (26.0-34.0); MEAN CORPUSCULAR HGB CONC 35.4 G/dL (31.0-37.0); MEAN CORPUSCULAR VOLUME 94 fL (80-100); PLATELET COUNT (AUTO) 158 K/uL (150-450); RED BLOOD CELL COUNT(AUTO) 4.81 MIL/uL (4.50-5.90); RED CELL DISTRIBUTION WIDTH 12.8 % (11.5-14.5)
[2017-11-22 07:34] LABS: ANION GAP 5 mmol/L (8-16); CALCIUM, TOTAL 8.6 mg/dL (8.8-10.5); CARBON DIOXIDE 32 mmol/L (22-29); CHLORIDE 101 mmol/L (98-107); GLOMERULAR FILTR. RATE CALC > 60 mL/min (>60); GLUCOSE,RANDOM 83 mg/dL (70-110); PHOSPHORUS 4.1 mg/dL (2.5-4.9); POTASSIUM 4.6 mmol/L (3.5-5.1); SODIUM SERUM 138 mmol/L (136-145); UREA NITROGEN, BLOOD 19 mg/dL (7-18); VALPROIC ACID 91 mcg/mL (50-100)
[2017-11-22 08:33] VITALS: BP 103/65
[2017-11-22 08:35] LABS: BAND NEUTROPHILS % (MANUAL) 2 % (0-5); EOSINOPHILS % (MANUAL) 1 % (1-6); LYMPHOCYTES % (MANUAL) 43 % (22-44); MONOCYTES % (MANUAL) 10 % (2-9); SEGMENTED NEUTROPHILS % 44 % (40-70)
[2017-11-22] MEDS: MULTIVITAMINS WITH MINERALS, THERAPEUTIC TABLET PO SCH (08:51)
[2017-11-22] MEDS: ARIPiprazole 10 MG TABLET PO SCH (08:51)
[2017-11-22] MEDS: PROPRANOLOL HCL 10 MG TABLET PO SCH ×3 (08:51→16:23)
[2017-11-22] MEDS: LORazepam 1 MG TABLET PO PRN ×2 (08:52→20:04)
[2017-11-22 18:27] VITALS: BP 119/76
[2017-11-22] MEDS: ZOLPIDEM TARTRATE 10 MG TABLET PO PRN (20:04)
[2017-11-22] MEDS: DIVALPROEX SODIUM 500 MG ER TABLET PO SCH (20:04)
[2017-11-23] MEDS: LEVOTHYROXINE SODIUM 50 MCG TABLET PO SCH (06:23)
[2017-11-23] MEDS: PROPRANOLOL HCL 10 MG TABLET PO SCH ×3 (08:27→16:43)
[2017-11-23] MEDS: MULTIVITAMINS WITH MINERALS, THERAPEUTIC TABLET PO SCH (08:27)
[2017-11-23] MEDS: ARIPiprazole 10 MG TABLET PO SCH (08:27)
[2017-11-23 08:40] VITALS: BP 101/63
[2017-11-23 16:30] VITALS: BP 110/70
[2017-11-23] MEDS: DIVALPROEX SODIUM 500 MG ER TABLET PO SCH (20:25)
[2017-11-23] MEDS: ZOLPIDEM TARTRATE 10 MG TABLET PO PRN (21:14)
[2017-11-24] MEDS: LEVOTHYROXINE SODIUM 50 MCG TABLET PO SCH (06:01)
[2017-11-24] MEDS: MULTIVITAMINS WITH MINERALS, THERAPEUTIC TABLET PO SCH (09:43)
[2017-11-24] MEDS: ARIPiprazole 10 MG TABLET PO SCH (09:44)
[2017-11-24 09:45] VITALS: BP 113/69
[2017-11-24] MEDS: PROPRANOLOL HCL 10 MG TABLET PO SCH ×3 (09:47→17:00)
[2017-11-24] MEDS: DIVALPROEX SODIUM 500 MG ER TABLET PO SCH (20:35)
[2017-11-24] MEDS: ZOLPIDEM TARTRATE 10 MG TABLET PO PRN (20:37)
[2017-11-24 20:49] VITALS: BP 108/72
[2017-11-25] MEDS: LEVOTHYROXINE SODIUM 50 MCG TABLET PO SCH (07:03)
[2017-11-25 08:30] VITALS: BP 97/63
[2017-11-25] MEDS: PROPRANOLOL HCL 10 MG TABLET PO SCH ×3 (10:09→16:32)
[2017-11-25] MEDS: ARIPiprazole 10 MG TABLET PO SCH (10:09)
[2017-11-25] MEDS: MULTIVITAMINS WITH MINERALS, THERAPEUTIC TABLET PO SCH (10:09)
[2017-11-25 13:40] VITALS: BP 116/69
[2017-11-25] MEDS: LORazepam 1 MG TABLET PO PRN (16:44)
[2017-11-25 17:50] VITALS: BP 131/78
[2017-11-25] MEDS ORDERED: BENZOCAINE 10% 7 GM GEL TP PRN (19:45)
[2017-11-25] MEDS: DIVALPROEX SODIUM 500 MG ER TABLET PO SCH (21:24)
[2017-11-25] MEDS: ZOLPIDEM TARTRATE 10 MG TABLET PO PRN (21:25)
[2017-11-26] MEDS: LEVOTHYROXINE SODIUM 50 MCG TABLET PO SCH (06:25)
[2017-11-26] MEDS: MAGNESIUM SULFATE 454 GM BOX PO SCH ×3 (08:00→16:57)
[2017-11-26 08:36] VITALS: BP 97/66
[2017-11-26] MEDS: PROPRANOLOL HCL 10 MG TABLET PO SCH ×3 (09:55→16:37)
[2017-11-26] MEDS: MULTIVITAMINS WITH MINERALS, THERAPEUTIC TABLET PO SCH (09:55)
[2017-11-26] MEDS: ARIPiprazole 10 MG TABLET PO SCH (09:56)
[2017-11-26 18:48] VITALS: BP 104/76
[2017-11-26] MEDS: DIVALPROEX SODIUM 500 MG ER TABLET PO SCH (20:35)
[2017-11-26] MEDS: ZOLPIDEM TARTRATE 10 MG TABLET PO PRN (21:03)
[2017-11-27 06:10] VITALS: BP 110/73
[2017-11-27] MEDS: LEVOTHYROXINE SODIUM 50 MCG TABLET PO SCH (06:28)
[2017-11-27] MEDS: MAGNESIUM SULFATE 454 GM BOX PO SCH ×3 (08:00→16:40)
[2017-11-27] MEDS: MULTIVITAMINS WITH MINERALS, THERAPEUTIC TABLET PO SCH (08:16)
[2017-11-27] MEDS: PROPRANOLOL HCL 10 MG TABLET PO SCH ×3 (08:16→16:35)
[2017-11-27] MEDS: ARIPiprazole 10 MG TABLET PO SCH (08:17)
[2017-11-27 08:58] VITALS: BP 135/82
[2017-11-27 16:53] VITALS: BP 104/61
[2017-11-27] MEDS: DIVALPROEX SODIUM 500 MG ER TABLET PO SCH (20:09)
[2017-11-27] MEDS: ZOLPIDEM TARTRATE 10 MG TABLET PO PRN (23:11)
[2017-11-28 02:00] VITALS: BP 109/70
[2017-11-28] MEDS: LEVOTHYROXINE SODIUM 50 MCG TABLET PO SCH (06:21)
[2017-11-28] MEDS: MAGNESIUM SULFATE 454 GM BOX PO SCH ×3 (08:00→17:37)
[2017-11-28] MEDS: ARIPiprazole 10 MG TABLET PO SCH (09:06)
[2017-11-28] MEDS: PROPRANOLOL HCL 10 MG TABLET PO SCH ×3 (09:07→17:37)
[2017-11-28] MEDS: MULTIVITAMINS WITH MINERALS, THERAPEUTIC TABLET PO SCH (09:09)
[2017-11-28 09:30] VITALS: BP 102/53
[2017-11-28 17:54] VITALS: BP 112/74
[2017-11-28] MEDS: DIVALPROEX SODIUM 500 MG ER TABLET PO SCH (20:30)
[2017-11-28] MEDS: LORazepam 1 MG TABLET PO PRN (21:48)
[2017-11-28] MEDS: ZOLPIDEM TARTRATE 10 MG TABLET PO PRN (21:48)
[2017-11-29 00:39] VITALS: BP 112/80
[2017-11-29] MEDS: LEVOTHYROXINE SODIUM 50 MCG TABLET PO SCH (06:38)
[2017-11-29] MEDS: MAGNESIUM SULFATE 454 GM BOX PO SCH ×3 (08:00→18:00)
[2017-11-29] MEDS: ARIPiprazole 10 MG TABLET PO SCH (08:49)
[2017-11-29] MEDS: MULTIVITAMINS WITH MINERALS, THERAPEUTIC TABLET PO SCH (08:50)
[2017-11-29] MEDS: PROPRANOLOL HCL 10 MG TABLET PO SCH ×3 (08:50→16:09)
[2017-11-29 09:38] VITALS: BP 115/61
[2017-11-29 16:38] VITALS: BP 110/68
[2017-11-29] MEDS: DIVALPROEX SODIUM 500 MG ER TABLET PO SCH (21:05)
[2017-11-30 00:45] VITALS: BP 140/89
[2017-11-30] MEDS: ZOLPIDEM TARTRATE 10 MG TABLET PO PRN ×2 (00:53→20:19)
[2017-11-30] MEDS: LORazepam 1 MG TABLET PO PRN ×3 (00:53→21:33)
[2017-11-30] MEDS: LEVOTHYROXINE SODIUM 50 MCG TABLET PO SCH (07:00)
[2017-11-30] MEDS: MAGNESIUM SULFATE 454 GM BOX PO SCH ×3 (08:00→16:37)
[2017-11-30 08:52] VITALS: BP 115/88
[2017-11-30] MEDS: PROPRANOLOL HCL 10 MG TABLET PO SCH ×3 (08:53→16:10)
[2017-11-30] MEDS: ARIPiprazole 10 MG TABLET PO SCH (08:53)
[2017-11-30] MEDS: MULTIVITAMINS WITH MINERALS, THERAPEUTIC TABLET PO SCH (08:54)
[2017-11-30 16:12] VITALS: BP 111/66
[2017-11-30] MEDS: DIVALPROEX SODIUM 500 MG ER TABLET PO SCH (20:16)
[2017-12-01] MEDS: LEVOTHYROXINE SODIUM 50 MCG TABLET PO SCH (06:50)
[2017-12-01] MEDS: MAGNESIUM SULFATE 454 GM BOX PO SCH ×3 (08:00→16:46)
[2017-12-01 09:08] VITALS: BP 109/66
[2017-12-01] MEDS: ARIPiprazole 10 MG TABLET PO SCH (09:46)
[2017-12-01] MEDS: MULTIVITAMINS WITH MINERALS, THERAPEUTIC TABLET PO SCH (09:46)
[2017-12-01] MEDS: PROPRANOLOL HCL 10 MG TABLET PO SCH ×3 (09:46→16:46)
[2017-12-01 19:36] VITALS: BP 120/90
[2017-12-01] MEDS: DIVALPROEX SODIUM 500 MG ER TABLET PO SCH (20:18)
[2017-12-01] MEDS: ZOLPIDEM TARTRATE 10 MG TABLET PO PRN (23:56)
[2017-12-02] MEDS: LEVOTHYROXINE SODIUM 50 MCG TABLET PO SCH (06:40)
[2017-12-02] MEDS: MAGNESIUM SULFATE 454 GM BOX PO SCH ×3 (08:00→17:21)
[2017-12-02 08:44] VITALS: BP 96/62
[2017-12-02] MEDS: PROPRANOLOL HCL 10 MG TABLET PO SCH ×3 (10:08→16:17)
[2017-12-02] MEDS: ARIPiprazole 10 MG TABLET PO SCH (10:08)
[2017-12-02] MEDS: MULTIVITAMINS WITH MINERALS, THERAPEUTIC TABLET PO SCH (10:10)
[2017-12-02 16:00] VITALS: BP 105/82
[2017-12-02] MEDS: DIVALPROEX SODIUM 500 MG ER TABLET PO SCH (20:19)
[2017-12-02] MEDS: ZOLPIDEM TARTRATE 10 MG TABLET PO PRN (20:19)
[2017-12-02] MEDS: LORazepam 1 MG TABLET PO PRN (23:45)
[2017-12-03] MEDS: LEVOTHYROXINE SODIUM 50 MCG TABLET PO SCH (06:43)
[2017-12-03] MEDS: MAGNESIUM SULFATE 454 GM BOX PO SCH ×3 (08:00→18:00)
[2017-12-03] MEDS: LORazepam 1 MG TABLET PO PRN ×2 (08:19→22:37)
[2017-12-03 08:30] VITALS: BP 105/67
[2017-12-03] MEDS: MULTIVITAMINS WITH MINERALS, THERAPEUTIC TABLET PO SCH (09:47)
[2017-12-03] MEDS: PROPRANOLOL HCL 10 MG TABLET PO SCH ×3 (09:47→17:16)
[2017-12-03] MEDS: ARIPiprazole 10 MG TABLET PO SCH (09:47)
[2017-12-03 12:07] VITALS: BP 140/79
[2017-12-03 20:56] VITALS: BP 127/66
[2017-12-03] MEDS: DIVALPROEX SODIUM 500 MG ER TABLET PO SCH (20:59)
[2017-12-03] MEDS: ZOLPIDEM TARTRATE 10 MG TABLET PO PRN (22:37)
[2017-12-04] MEDS: LEVOTHYROXINE SODIUM 50 MCG TABLET PO SCH (06:50)
[2017-12-04] MEDS: MAGNESIUM SULFATE 454 GM BOX PO SCH ×3 (08:00→17:33)
[2017-12-04] MEDS: PROPRANOLOL HCL 10 MG TABLET PO SCH ×3 (09:00→17:15)
[2017-12-04] MEDS: MULTIVITAMINS WITH MINERALS, THERAPEUTIC TABLET PO SCH (09:00)
[2017-12-04] MEDS: ARIPiprazole 10 MG TABLET PO SCH (09:00)
[2017-12-04] MEDS: DIVALPROEX SODIUM 500 MG ER TABLET PO SCH (20:11)
[2017-12-04] MEDS: LORazepam 1 MG TABLET PO PRN (20:14)
[2017-12-04] MEDS: ZOLPIDEM TARTRATE 10 MG TABLET PO PRN (22:52)
[2017-12-05 00:48] VITALS: BP 116/72
[2017-12-05] MEDS: LEVOTHYROXINE SODIUM 50 MCG TABLET PO SCH (06:46)
[2017-12-05 08:27] VITALS: BP 118/76
[2017-12-05] MEDS: MAGNESIUM SULFATE 454 GM BOX PO SCH ×3 (08:36→16:36)
[2017-12-05] MEDS: MULTIVITAMINS WITH MINERALS, THERAPEUTIC TABLET PO SCH (08:36)
[2017-12-05] MEDS: PROPRANOLOL HCL 10 MG TABLET PO SCH ×3 (08:36→16:35)
[2017-12-05] MEDS: ARIPiprazole 10 MG TABLET PO SCH (08:37)
[2017-12-05 16:05] VITALS: BP 106/59
[2017-12-05] MEDS: DIVALPROEX SODIUM 500 MG ER TABLET PO SCH (20:26)
[2017-12-06] MEDS: LORazepam 1 MG TABLET PO PRN (00:14)
[2017-12-06] MEDS: ZOLPIDEM TARTRATE 10 MG TABLET PO PRN (00:14)
[2017-12-06 00:19] VITALS: BP 115/72
[2017-12-06 06:31] LABS: BASOPHILS % (AUTO) 0.5 % (0.0-2.0); EOSINOPHILS % (AUTO) 2.7 % (1.0-6.0); HEMATOCRIT 47.3 % (41-53); HEMOGLOBIN 16.9 g/dL (13.5-17.5); LYMPHOCYTES # (AUTO) 3.4 K/uL (1.0-4.8); LYMPHOCYTES % (AUTO) 44.5 % (22.0-44.0); MEAN CORPUSCULAR HEMOGLOBIN 33.4 pg (26.0-34.0); MEAN CORPUSCULAR HGB CONC 35.8 G/dL (31.0-37.0); MEAN CORPUSCULAR VOLUME 93 fL (80-100); MONOCYTES # (AUTO) 0.8 K/uL (0.1-1.0); MONOCYTES % (AUTO) 10.6 % (2.0-9.0); NEUTROPHILS # (AUTO) 3.2 K/uL (1.8-7.7); NEUTROPHILS % (AUTO) 41.7 % (40.0-70.0); PLATELET COUNT (AUTO) 191 K/uL (150-450); RED BLOOD CELL COUNT(AUTO) 5.06 MIL/uL (4.50-5.90); RED CELL DISTRIBUTION WIDTH 12.8 % (11.5-14.5)
[2017-12-06 06:47] LABS: ANION GAP 4 mmol/L (8-16); CALCIUM, TOTAL 9.3 mg/dL (8.8-10.5); CARBON DIOXIDE 33 mmol/L (22-29); CHLORIDE 100 mmol/L (98-107); CREATININE 1.02 mg/dL (0.60-1.30); GLOMERULAR FILTR. RATE CALC > 60 mL/min (>60); GLUCOSE,RANDOM 80 mg/dL (70-110); POTASSIUM 4.3 mmol/L (3.5-5.1); SODIUM SERUM 137 mmol/L (136-145); UREA NITROGEN, BLOOD 17 mg/dL (7-18); VALPROIC ACID 100 mcg/mL (50-100)
[2017-12-06] MEDS: LEVOTHYROXINE SODIUM 50 MCG TABLET PO SCH (06:59)
[2017-12-06] MEDS: ARIPiprazole 10 MG TABLET PO SCH (08:09)
[2017-12-06] MEDS: MAGNESIUM SULFATE 454 GM BOX PO SCH ×3 (08:09→16:52)
[2017-12-06] MEDS: PROPRANOLOL HCL 10 MG TABLET PO SCH ×3 (08:09→16:52)
[2017-12-06] MEDS: MULTIVITAMINS WITH MINERALS, THERAPEUTIC TABLET PO SCH (08:09)
[2017-12-06 08:45] VITALS: BP 112/77
[2017-12-06 17:50] VITALS: BP 136/81
[2017-12-06] MEDS: DIVALPROEX SODIUM 500 MG ER TABLET PO SCH (20:40)
[2017-12-07] MEDS: LEVOTHYROXINE SODIUM 50 MCG TABLET PO SCH (06:35)
[2017-12-07] MEDS: PROPRANOLOL HCL 10 MG TABLET PO SCH ×3 (08:14→16:27)
[2017-12-07] MEDS: ARIPiprazole 10 MG TABLET PO SCH (08:14)
[2017-12-07] MEDS: MAGNESIUM SULFATE 454 GM BOX PO SCH ×3 (08:14→16:28)
[2017-12-07] MEDS: MULTIVITAMINS WITH MINERALS, THERAPEUTIC TABLET PO SCH (08:14)
[2017-12-07 08:15] VITALS: BP 115/58
[2017-12-07 16:11] VITALS: BP 104/61
[2017-12-07] MEDS: DIVALPROEX SODIUM 500 MG ER TABLET PO SCH (20:03)
[2017-12-08] MEDS: LEVOTHYROXINE SODIUM 50 MCG TABLET PO SCH (06:47)
[2017-12-08] MEDS: ARIPiprazole 10 MG TABLET PO SCH (07:47)
[2017-12-08] MEDS: PROPRANOLOL HCL 10 MG TABLET PO SCH ×3 (07:47→16:15)
[2017-12-08] MEDS: MULTIVITAMINS WITH MINERALS, THERAPEUTIC TABLET PO SCH (07:47)
[2017-12-08] MEDS: MAGNESIUM SULFATE 454 GM BOX PO SCH ×3 (07:48→16:16)
[2017-12-08 08:07] VITALS: BP 123/61
[2017-12-08] MEDS: LORazepam 1 MG TABLET PO PRN (08:53)
[2017-12-08 20:08] VITALS: BP 120/62
[2017-12-08] MEDS: DIVALPROEX SODIUM 500 MG ER TABLET PO SCH (21:00)
[2017-12-09] MEDS: LEVOTHYROXINE SODIUM 50 MCG TABLET PO SCH (06:34)
[2017-12-09] MEDS: MAGNESIUM SULFATE 454 GM BOX PO SCH ×3 (08:00→18:00)
[2017-12-09] MEDS: PROPRANOLOL HCL 10 MG TABLET PO SCH ×3 (10:25→16:05)
[2017-12-09] MEDS: ARIPiprazole 10 MG TABLET PO SCH (10:25)
[2017-12-09] MEDS: MULTIVITAMINS WITH MINERALS, THERAPEUTIC TABLET PO SCH (10:26)
[2017-12-09] MEDS: LORazepam 1 MG TABLET PO PRN (12:31)
[2017-12-09 16:37] VITALS: BP 104/58
[2017-12-09] MEDS: DIVALPROEX SODIUM 500 MG ER TABLET PO SCH (20:31)
[2017-12-10] MEDS: LEVOTHYROXINE SODIUM 50 MCG TABLET PO SCH (06:48)
[2017-12-10] MEDS: MAGNESIUM SULFATE 454 GM BOX PO SCH ×3 (08:00→16:17)
[2017-12-10] MEDS: MULTIVITAMINS WITH MINERALS, THERAPEUTIC TABLET PO SCH (09:24)
[2017-12-10 09:25] VITALS: BP 107/55
[2017-12-10] MEDS: PROPRANOLOL HCL 10 MG TABLET PO SCH ×3 (09:25→16:17)
[2017-12-10] MEDS: ARIPiprazole 10 MG TABLET PO SCH (09:26)
[2017-12-10 18:43] VITALS: BP 116/72
[2017-12-10] MEDS: DIVALPROEX SODIUM 500 MG ER TABLET PO SCH (20:15)
[2017-12-10] MEDS: LORazepam 1 MG TABLET PO PRN (21:09)
[2017-12-11] MEDS: LEVOTHYROXINE SODIUM 50 MCG TABLET PO SCH (06:33)
[2017-12-11] MEDS: MAGNESIUM SULFATE 454 GM BOX PO SCH ×3 (08:00→17:56)
[2017-12-11] MEDS: PROPRANOLOL HCL 10 MG TABLET PO SCH ×3 (08:05→17:56)
[2017-12-11] MEDS: ARIPiprazole 10 MG TABLET PO SCH (08:05)
[2017-12-11] MEDS: MULTIVITAMINS WITH MINERALS, THERAPEUTIC TABLET PO SCH (08:05)
[2017-12-11 08:58] VITALS: BP 122/67
[2017-12-11] MEDS: LORazepam 1 MG TABLET PO PRN (12:28)
[2017-12-11 17:00] VITALS: BP 124/70
[2017-12-11] MEDS: DIVALPROEX SODIUM 500 MG ER TABLET PO SCH (20:31)
[2017-12-12] MEDS: LEVOTHYROXINE SODIUM 50 MCG TABLET PO SCH (06:51)
[2017-12-12] MEDS: MAGNESIUM SULFATE 454 GM BOX PO SCH ×3 (08:00→17:16)
[2017-12-12] MEDS: PROPRANOLOL HCL 10 MG TABLET PO SCH ×3 (08:57→16:35)
[2017-12-12] MEDS: ARIPiprazole 10 MG TABLET PO SCH (08:57)
[2017-12-12] MEDS: MULTIVITAMINS WITH MINERALS, THERAPEUTIC TABLET PO SCH (08:58)
[2017-12-12 09:56] VITALS: BP 122/67
[2017-12-12] MEDS: LORazepam 1 MG TABLET PO PRN (15:15)
[2017-12-12 17:22] VITALS: BP 119/82
[2017-12-12] MEDS: DIVALPROEX SODIUM 500 MG ER TABLET PO SCH (20:07)
[2017-12-13] MEDS: LEVOTHYROXINE SODIUM 50 MCG TABLET PO SCH (06:10)
[2017-12-13] MEDS: MAGNESIUM SULFATE 454 GM BOX PO SCH ×3 (08:00→18:00)
[2017-12-13] MEDS: ARIPiprazole 10 MG TABLET PO SCH (10:04)
[2017-12-13] MEDS: MULTIVITAMINS WITH MINERALS, THERAPEUTIC TABLET PO SCH (10:04)
[2017-12-13] MEDS: PROPRANOLOL HCL 10 MG TABLET PO SCH ×3 (10:05→16:19)
[2017-12-13] MEDS: DIVALPROEX SODIUM 500 MG ER TABLET PO SCH (21:51)
[2017-12-14] MEDS: LEVOTHYROXINE SODIUM 50 MCG TABLET PO SCH (06:58)
[2017-12-14] MEDS: MAGNESIUM SULFATE 454 GM BOX PO SCH ×3 (08:00→17:00)
[2017-12-14] MEDS: LORazepam 1 MG TABLET PO PRN ×2 (10:28→23:37)
[2017-12-14] MEDS: ARIPiprazole 10 MG TABLET PO SCH (10:29)
[2017-12-14] MEDS: MULTIVITAMINS WITH MINERALS, THERAPEUTIC TABLET PO SCH (10:29)
[2017-12-14] MEDS: PROPRANOLOL HCL 10 MG TABLET PO SCH ×3 (10:29→16:31)
[2017-12-14] MEDS: DIVALPROEX SODIUM 500 MG ER TABLET PO SCH (20:34)
[2017-12-14] MEDS: ZOLPIDEM TARTRATE 10 MG TABLET PO PRN (20:36)
[2017-12-15] MEDS: LEVOTHYROXINE SODIUM 50 MCG TABLET PO SCH (06:40)
[2017-12-15] MEDS: MAGNESIUM SULFATE 454 GM BOX PO SCH ×3 (08:00→18:00)
[2017-12-15 08:41] VITALS: BP 110/66
[2017-12-15] MEDS: MULTIVITAMINS WITH MINERALS, THERAPEUTIC TABLET PO SCH (11:27)
[2017-12-15] MEDS: ARIPiprazole 10 MG TABLET PO SCH (11:27)
[2017-12-15] MEDS: PROPRANOLOL HCL 10 MG TABLET PO SCH ×3 (11:27→16:34)
[2017-12-15 21:02] VITALS: BP 112/72
[2017-12-15] MEDS: DIVALPROEX SODIUM 500 MG ER TABLET PO SCH (21:37)
[2017-12-16] MEDS: LEVOTHYROXINE SODIUM 50 MCG TABLET PO SCH (07:00)
[2017-12-16] MEDS: MAGNESIUM SULFATE 454 GM BOX PO SCH ×3 (08:00→16:20)
[2017-12-16 08:05] VITALS: BP 122/64
[2017-12-16] MEDS: MULTIVITAMINS WITH MINERALS, THERAPEUTIC TABLET PO SCH (09:23)
[2017-12-16] MEDS: PROPRANOLOL HCL 10 MG TABLET PO SCH ×3 (09:24→16:22)
[2017-12-16] MEDS: ARIPiprazole 10 MG TABLET PO SCH (09:25)
[2017-12-16] MEDS: LORazepam 1 MG TABLET PO PRN (18:02)
[2017-12-16] MEDS: DIVALPROEX SODIUM 500 MG ER TABLET PO SCH (20:17)
[2017-12-16] MEDS: ZOLPIDEM TARTRATE 10 MG TABLET PO PRN (20:59)
[2017-12-17] MEDS: LEVOTHYROXINE SODIUM 50 MCG TABLET PO SCH (06:19)
[2017-12-17] MEDS: MAGNESIUM SULFATE 454 GM BOX PO SCH ×3 (08:00→18:00)
[2017-12-17 09:22] VITALS: BP 111/61
[2017-12-17] MEDS: ARIPiprazole 10 MG TABLET PO SCH (09:54)
[2017-12-17] MEDS: MULTIVITAMINS WITH MINERALS, THERAPEUTIC TABLET PO SCH (09:54)
[2017-12-17] MEDS: PROPRANOLOL HCL 10 MG TABLET PO SCH ×3 (09:55→16:42)
[2017-12-17] MEDS: DIVALPROEX SODIUM 500 MG ER TABLET PO SCH (20:43)
[2017-12-17] MEDS: LORazepam 1 MG TABLET PO PRN (20:43)
[2017-12-17 20:58] VITALS: BP 122/70
[2017-12-17] MEDS: ZOLPIDEM TARTRATE 10 MG TABLET PO PRN (21:34)
[2017-12-18] MEDS: LEVOTHYROXINE SODIUM 50 MCG TABLET PO SCH (06:40)
[2017-12-18] MEDS: MAGNESIUM SULFATE 454 GM BOX PO SCH ×3 (08:00→17:03)
[2017-12-18 08:48] VITALS: BP 120/78
[2017-12-18] MEDS: ARIPiprazole 10 MG TABLET PO SCH (10:05)
[2017-12-18] MEDS: MULTIVITAMINS WITH MINERALS, THERAPEUTIC TABLET PO SCH (10:05)
[2017-12-18] MEDS: PROPRANOLOL HCL 10 MG TABLET PO SCH ×3 (10:06→17:04)
[2017-12-18 16:39] VITALS: BP 115/66
[2017-12-18] MEDS: DIVALPROEX SODIUM 500 MG ER TABLET PO SCH (20:14)
[2017-12-18] MEDS: ZOLPIDEM TARTRATE 10 MG TABLET PO PRN ×2 (21:20→22:48)
[2017-12-19] MEDS: LEVOTHYROXINE SODIUM 50 MCG TABLET PO SCH (06:45)
[2017-12-19] MEDS: MAGNESIUM SULFATE 454 GM BOX PO SCH ×3 (08:00→16:24)
[2017-12-19] MEDS: PROPRANOLOL HCL 10 MG TABLET PO SCH ×3 (09:22→16:23)
[2017-12-19] MEDS: ARIPiprazole 10 MG TABLET PO SCH (09:22)
[2017-12-19] MEDS: MULTIVITAMINS WITH MINERALS, THERAPEUTIC TABLET PO SCH (09:22)
[2017-12-19 09:41] VITALS: BP 110/63
[2017-12-19] MEDS: LORazepam 1 MG TABLET PO PRN (16:30)
[2017-12-19] MEDS: DIVALPROEX SODIUM 500 MG ER TABLET PO SCH (20:37)
[2017-12-19] MEDS: ZOLPIDEM TARTRATE 10 MG TABLET PO PRN (21:12)
[2017-12-19 21:57] VITALS: BP 129/70
[2017-12-20] MEDS: LEVOTHYROXINE SODIUM 50 MCG TABLET PO SCH (07:09)
[2017-12-20 08:15] VITALS: BP 106/61
[2017-12-20] MEDS: ARIPiprazole 10 MG TABLET PO SCH (10:17)
[2017-12-20] MEDS: PROPRANOLOL HCL 10 MG TABLET PO SCH ×3 (10:17→16:40)
[2017-12-20] MEDS: MAGNESIUM SULFATE 454 GM BOX PO SCH ×3 (10:19→18:08)
[2017-12-20] MEDS: MULTIVITAMINS WITH MINERALS, THERAPEUTIC TABLET PO SCH (10:19)
[2017-12-20] MEDS: DIVALPROEX SODIUM 500 MG ER TABLET PO SCH (20:38)
[2017-12-20] MEDS: ZOLPIDEM TARTRATE 10 MG TABLET PO PRN (20:40)
[2017-12-21 00:20] VITALS: BP 127/58
[2017-12-21] MEDS: LEVOTHYROXINE SODIUM 50 MCG TABLET PO SCH (06:09)
[2017-12-21] MEDS: MAGNESIUM SULFATE 454 GM BOX PO SCH ×3 (08:00→17:50)
[2017-12-21 08:38] VITALS: BP 109/68
[2017-12-21] MEDS: ARIPiprazole 10 MG TABLET PO SCH (08:45)
[2017-12-21] MEDS: MULTIVITAMINS WITH MINERALS, THERAPEUTIC TABLET PO SCH (08:46)
[2017-12-21] MEDS: PROPRANOLOL HCL 10 MG TABLET PO SCH ×3 (08:47→16:22)
[2017-12-21] MEDS: DIVALPROEX SODIUM 500 MG ER TABLET PO SCH (20:06)
[2017-12-21] MEDS: ZOLPIDEM TARTRATE 10 MG TABLET PO PRN (20:49)
[2017-12-21 21:35] VITALS: BP 111/68
[2017-12-22] MEDS: LEVOTHYROXINE SODIUM 50 MCG TABLET PO SCH (06:02)
[2017-12-22] MEDS: ARIPiprazole 10 MG TABLET PO SCH (08:33)
[2017-12-22] MEDS: MAGNESIUM SULFATE 454 GM BOX PO SCH ×3 (08:33→18:07)
[2017-12-22] MEDS: PROPRANOLOL HCL 10 MG TABLET PO SCH ×3 (08:33→16:18)
[2017-12-22] MEDS: MULTIVITAMINS WITH MINERALS, THERAPEUTIC TABLET PO SCH (08:33)
[2017-12-22] MEDS: DIVALPROEX SODIUM 500 MG ER TABLET PO SCH (20:17)
[2017-12-22] MEDS: ZOLPIDEM TARTRATE 10 MG TABLET PO PRN (20:18)
[2017-12-22 22:23] VITALS: BP 117/85
[2017-12-22 23:52] VITALS: BP 125/79
[2017-12-22] MEDS: ACETAMINOPHEN 325 MG TABLET PO PRN (23:52)
[2017-12-23] MEDS: LEVOTHYROXINE SODIUM 50 MCG TABLET PO SCH (06:08)
[2017-12-23] MEDS: MAGNESIUM SULFATE 454 GM BOX PO SCH ×3 (08:00→16:17)
[2017-12-23] MEDS: ARIPiprazole 10 MG TABLET PO SCH (09:02)
[2017-12-23] MEDS: PROPRANOLOL HCL 10 MG TABLET PO SCH ×3 (09:02→16:16)
[2017-12-23] MEDS: MULTIVITAMINS WITH MINERALS, THERAPEUTIC TABLET PO SCH (09:02)
[2017-12-23 16:34] VITALS: BP 116/65
[2017-12-23] MEDS: DIVALPROEX SODIUM 500 MG ER TABLET PO SCH (20:39)
[2017-12-23] MEDS: ZOLPIDEM TARTRATE 10 MG TABLET PO PRN (21:18)
== END 2017-12-23 22:15 | disposition left against medical advice (07) | DRG 753 ==
LOC: EMS 10:38 → 3EI 13:28 → 3EC 08-10 17:00 → 3EI 11-11 16:30
DX: F31.5 Bipolar disorder, current episode depressed, severe, with psychotic features (principal); E11.9 Type 2 diabetes mellitus without complications; F11.10 Opioid abuse, uncomplicated; F14.10 Cocaine abuse, uncomplicated; F17.210 Nicotine dependence, cigarettes, uncomplicated; G47.00 Insomnia, unspecified; F41.9 Anxiety disorder, unspecified; K59.00 Constipation, unspecified; Z53.21 Procedure and treatment not carried out due to patient leaving prior to being seen by health care provider; E03.9 Hypothyroidism, unspecified; K04.7 Periapical abscess without sinus; K03.81 Cracked tooth; F15.10 Other stimulant abuse, uncomplicated; Y04.0XXA Assault by unarmed brawl or fight, initial encounter; Z71.51 Drug abuse counseling and surveillance of drug abuser; Z59.0 Homelessness; Z71.6 Tobacco abuse counseling
CPT/HCPCS: 82306; 83036; 83735; 84100; 84443; 85007; 87081; 99285; G0480; J1200; J1630; J2060

== ENCOUNTER 2017-12-24 19:47 | Inpatient (IN) | payer MEDICAID ==
[~2017-12-24] VITALS: Ht 182.9 cm; Wt 91.0 kg
[~2017-12-24 19:47] MED LIST: ARIP2 PO; DIVA-76 PO; METF-960 PO; TOPI100T37 PO
[2017-12-24 20:33] LABS: GLUCOSE,POINT OF CARE 106 MG/DL (70-110)
[2017-12-24 20:46] LABS: BASOPHILS % (AUTO) 0.3 % (0.0-2.0); EOSINOPHILS % (AUTO) 0.1 % (1.0-6.0); HEMATOCRIT 43.5 % (41-53); HEMOGLOBIN 15.5 g/dL (13.5-17.5); LYMPHOCYTES # (AUTO) 1.9 K/uL (1.0-4.8); MEAN CORPUSCULAR HEMOGLOBIN 33.1 pg (26.0-34.0); MEAN CORPUSCULAR HGB CONC 35.7 G/dL (31.0-37.0); MEAN CORPUSCULAR VOLUME 93 fL (80-100); MONOCYTES # (AUTO) 1.2 K/uL (0.1-1.0); MONOCYTES % (AUTO) 13.1 % (2.0-9.0); NEUTROPHILS # (AUTO) 6.1 K/uL (1.8-7.7); NEUTROPHILS % (AUTO) 65.5 % (40.0-70.0); PLATELET COUNT (AUTO) 173 K/uL (150-450); RED BLOOD CELL COUNT(AUTO) 4.69 MIL/uL (4.50-5.90); RED CELL DISTRIBUTION WIDTH 12.9 % (11.5-14.5)
[2017-12-24 20:54] LABS: ANION GAP 9 mmol/L (8-16); CARBON DIOXIDE 28 mmol/L (22-29); CHLORIDE 102 mmol/L (98-107); CREATININE 1.06 mg/dL (0.60-1.30); GLOMERULAR FILTR. RATE CALC > 60 mL/min (>60); GLUCOSE,RANDOM 106 mg/dL (70-110); POTASSIUM 3.6 mmol/L (3.5-5.1); SODIUM SERUM 139 mmol/L (136-145); UREA NITROGEN, BLOOD 17 mg/dL (7-18)
[2017-12-24 21:01] LABS: ALANINE AMINOTRANSFERASE 58 U/L (12-78); ALKALINE PHOSPHATASE 62 U/L (46-116); ASPARTATE AMINOTRANSFERASE 222 U/L (15-37); BILIRUBIN,TOTAL 0.7 mg/dL (0.1-1.0); TOTAL PROTEIN, SERUM 7.5 g/dL (6.4-8.2); VALPROIC ACID 78 mcg/mL (50-100)
[2017-12-24] MEDS ORDERED: HALOPERIDOL 5 MG TABLET PO PRN (22:00)
[2017-12-24] MEDS ORDERED: OLANZapine 5 MG RAPDIS TABLET PO PRN (22:15)
[2017-12-25 01:02] VITALS: BP 115/60
[2017-12-25] MEDS ORDERED: BENZOCAINE/MENTHOL LOZENGE MM PRN (08:15)
[2017-12-25] MEDS ORDERED: IBUPROFEN 600 MG TABLET PO PRN (08:15)
[2017-12-25] MEDS ORDERED: ACETAMINOPHEN 325 MG TABLET PO PRN (08:15)
[2017-12-25] MEDS ORDERED: BACITRACIN 28.4 GM OINTMENT TP PRN (08:15)
[2017-12-25] MEDS ORDERED: MAGNESIUM HYDROXIDE SUSPENSION 30 ML UDCUP PO PRN (08:15)
[2017-12-25] MEDS ORDERED: CloNIDine HCL 0.1 MG TABLET PO PRN (08:15)
[2017-12-25] MEDS ORDERED: PETROLATUM,WHITE 71 GM JELLY TP PRN (08:15)
[2017-12-25] MEDS ORDERED: LOPERAMIDE HCL 2 MG CAPSULE PO PRN (08:15)
[2017-12-25] MEDS ORDERED: ALBUTEROL SULFATE HFA 90 MCG/PUFF 8 GM INHALER IH PRN (08:15)
[2017-12-25] MEDS ORDERED: MAG HYDROX/AL HYDROX/SIMETH ES 30 ML SUSPENSION UDCUP PO PRN (08:15)
[2017-12-25] MEDS: LORazepam 2 MG TABLET PO PRN ×2 (08:18→13:26)
[2017-12-25] MEDS: DOCUSATE SODIUM 100 MG CAPSULE PO SCH (09:00)
[2017-12-25] MEDS: OMEPRAZOLE 20 MG CAPSULE PO SCH (09:00)
[2017-12-25 09:13] VITALS: BP 128/81
[2017-12-25 16:22] VITALS: BP 121/67
[2017-12-25] MEDS: DIVALPROEX SODIUM 500 MG ER TABLET PO SCH (20:29)
[2017-12-26] MEDS: DOCUSATE SODIUM 100 MG CAPSULE PO SCH ×2 (08:39→09:00)
[2017-12-26] MEDS: OMEPRAZOLE 20 MG CAPSULE PO SCH ×2 (08:39→09:00)
[2017-12-26] MEDS: ARIPiprazole 10 MG TABLET PO SCH (08:40)
[2017-12-26 09:05] VITALS: BP 111/69
[2017-12-26] MEDS: LORazepam 2 MG TABLET PO PRN (14:54)
[2017-12-26 16:14] VITALS: BP 106/60
[2017-12-26] MEDS: PROPRANOLOL HCL 10 MG TABLET PO SCH (17:41)
[2017-12-26] MEDS: DIVALPROEX SODIUM 500 MG ER TABLET PO SCH (21:50)
[2017-12-27] MEDS: ARIPiprazole 10 MG TABLET PO SCH (08:11)
[2017-12-27] MEDS: PROPRANOLOL HCL 10 MG TABLET PO SCH ×3 (08:11→16:42)
[2017-12-27] MEDS: DOCUSATE SODIUM 100 MG CAPSULE PO SCH (09:00)
[2017-12-27] MEDS: OMEPRAZOLE 20 MG CAPSULE PO SCH (09:00)
[2017-12-27 09:22] VITALS: BP 104/71
[2017-12-27] MEDS: LORazepam 2 MG TABLET PO PRN (16:42)
[2017-12-27] MEDS: ZOLPIDEM TARTRATE 10 MG TABLET PO PRN (20:00)
[2017-12-27] MEDS: DIVALPROEX SODIUM 500 MG ER TABLET PO SCH (20:00)
[2017-12-28] MEDS: LEVOTHYROXINE SODIUM 25 MCG TABLET PO SCH (07:03)
[2017-12-28] MEDS: DOCUSATE SODIUM 100 MG CAPSULE PO SCH ×2 (08:39→08:45)
[2017-12-28] MEDS: OMEPRAZOLE 20 MG CAPSULE PO SCH ×2 (08:39→08:44)
[2017-12-28] MEDS: PROPRANOLOL HCL 10 MG TABLET PO SCH ×3 (08:40→17:18)
[2017-12-28] MEDS: ARIPiprazole 10 MG TABLET PO SCH (08:40)
[2017-12-28 08:49] VITALS: BP 101/57
[2017-12-28 16:00] VITALS: BP 104/69
[2017-12-28] MEDS: ZOLPIDEM TARTRATE 10 MG TABLET PO PRN (20:31)
[2017-12-28] MEDS: DIVALPROEX SODIUM 500 MG ER TABLET PO SCH (20:31)
[2017-12-29] MEDS: LEVOTHYROXINE SODIUM 25 MCG TABLET PO SCH (07:00)
[2017-12-29 08:25] VITALS: BP 109/61
[2017-12-29] MEDS: PROPRANOLOL HCL 10 MG TABLET PO SCH ×3 (08:37→16:42)
[2017-12-29] MEDS: ARIPiprazole 10 MG TABLET PO SCH (08:37)
[2017-12-29] MEDS: DOCUSATE SODIUM 100 MG CAPSULE PO SCH (08:41)
[2017-12-29] MEDS: OMEPRAZOLE 20 MG CAPSULE PO SCH (08:41)
[2017-12-29 18:00] VITALS: BP 110/60
[2017-12-29] MEDS: ZOLPIDEM TARTRATE 10 MG TABLET PO PRN (20:13)
[2017-12-29] MEDS: DIVALPROEX SODIUM 500 MG ER TABLET PO SCH (20:13)
[2017-12-30] MEDS: LEVOTHYROXINE SODIUM 25 MCG TABLET PO SCH (06:55)
[2017-12-30 08:22] VITALS: BP 102/59
[2017-12-30] MEDS: ARIPiprazole 10 MG TABLET PO SCH (08:56)
[2017-12-30] MEDS: OMEPRAZOLE 20 MG CAPSULE PO SCH (08:57)
[2017-12-30] MEDS: DOCUSATE SODIUM 100 MG CAPSULE PO SCH (08:58)
[2017-12-30] MEDS: PROPRANOLOL HCL 10 MG TABLET PO SCH ×3 (12:26→16:05)
[2017-12-30 16:40] VITALS: BP 104/52
[2017-12-30] MEDS: ZOLPIDEM TARTRATE 10 MG TABLET PO PRN (20:14)
[2017-12-30] MEDS: DIVALPROEX SODIUM 500 MG ER TABLET PO SCH (20:14)
[2017-12-31] MEDS: LEVOTHYROXINE SODIUM 25 MCG TABLET PO SCH (07:02)
[2017-12-31] MEDS: PROPRANOLOL HCL 10 MG TABLET PO SCH ×3 (08:04→16:04)
[2017-12-31] MEDS: ARIPiprazole 10 MG TABLET PO SCH (08:04)
[2017-12-31] MEDS: OMEPRAZOLE 20 MG CAPSULE PO SCH (08:05)
[2017-12-31] MEDS: DOCUSATE SODIUM 100 MG CAPSULE PO SCH (08:05)
[2017-12-31 08:27] VITALS: BP 98/67
[2017-12-31 16:24] VITALS: BP 123/65
[2017-12-31] MEDS: DIVALPROEX SODIUM 500 MG ER TABLET PO SCH (20:23)
[2017-12-31] MEDS: ZOLPIDEM TARTRATE 10 MG TABLET PO PRN (21:59)
[2018-01-01 00:15] VITALS: BP 125/67
[2018-01-01] MEDS: ONDANSETRON HCL 4 MG TABLET PO PRN ×2 (01:05→09:26)
[2018-01-01] MEDS: LEVOTHYROXINE SODIUM 25 MCG TABLET PO SCH (06:38)
[2018-01-01] MEDS: ARIPiprazole 10 MG TABLET PO SCH (08:20)
[2018-01-01] MEDS: OMEPRAZOLE 20 MG CAPSULE PO SCH (08:21)
[2018-01-01] MEDS: PROPRANOLOL HCL 10 MG TABLET PO SCH ×3 (08:21→16:08)
[2018-01-01 08:28] VITALS: BP 96/57
[2018-01-01 08:30] VITALS: BP 96/57
[2018-01-01] MEDS: DOCUSATE SODIUM 100 MG CAPSULE PO SCH (09:00)
[2018-01-01 16:00] VITALS: BP 126/58
[2018-01-01] MEDS: DIVALPROEX SODIUM 500 MG ER TABLET PO SCH (20:19)
[2018-01-02] MEDS: LEVOTHYROXINE SODIUM 25 MCG TABLET PO SCH (06:51)
[2018-01-02] MEDS: ARIPiprazole 10 MG TABLET PO SCH (08:36)
[2018-01-02] MEDS: OMEPRAZOLE 20 MG CAPSULE PO SCH (08:37)
[2018-01-02] MEDS: PROPRANOLOL HCL 10 MG TABLET PO SCH ×3 (08:37→17:20)
[2018-01-02 16:05] VITALS: BP 117/70
[2018-01-02] MEDS: ZOLPIDEM TARTRATE 10 MG TABLET PO PRN (20:52)
[2018-01-02] MEDS: DIVALPROEX SODIUM 500 MG ER TABLET PO SCH (20:52)
[2018-01-02] MEDS: LORazepam 2 MG TABLET PO PRN (23:38)
[2018-01-03 00:02] VITALS: BP 112/70
[2018-01-03] MEDS: LEVOTHYROXINE SODIUM 25 MCG TABLET PO SCH ×2 (06:51→06:54)
[2018-01-03 08:24] VITALS: BP 97/65
[2018-01-03] MEDS: ARIPiprazole 10 MG TABLET PO SCH (09:08)
[2018-01-03] MEDS: PROPRANOLOL HCL 10 MG TABLET PO SCH ×3 (09:08→17:39)
[2018-01-03] MEDS: OMEPRAZOLE 20 MG CAPSULE PO SCH (09:08)
[2018-01-03 17:16] VITALS: BP 125/71
[2018-01-03] MEDS: ZOLPIDEM TARTRATE 10 MG TABLET PO PRN (21:40)
[2018-01-03] MEDS: DIVALPROEX SODIUM 500 MG ER TABLET PO SCH (21:40)
[2018-01-04] MEDS: LEVOTHYROXINE SODIUM 25 MCG TABLET PO SCH (06:57)
[2018-01-04 08:32] VITALS: BP 96/57
[2018-01-04] MEDS: OMEPRAZOLE 20 MG CAPSULE PO SCH (08:56)
[2018-01-04] MEDS: ARIPiprazole 10 MG TABLET PO SCH (08:56)
[2018-01-04] MEDS: PROPRANOLOL HCL 10 MG TABLET PO SCH ×3 (08:57→16:53)
[2018-01-04 13:40] VITALS: BP 114/64
[2018-01-04 16:33] VITALS: BP 109/73
[2018-01-04] MEDS: DIVALPROEX SODIUM 500 MG ER TABLET PO SCH (21:36)
[2018-01-04] MEDS: ZOLPIDEM TARTRATE 10 MG TABLET PO PRN (21:36)
[2018-01-05] MEDS: LEVOTHYROXINE SODIUM 25 MCG TABLET PO SCH (06:54)
[2018-01-05 08:35] VITALS: BP 109/66
[2018-01-05] MEDS: OMEPRAZOLE 20 MG CAPSULE PO SCH (09:01)
[2018-01-05] MEDS: ARIPiprazole 10 MG TABLET PO SCH (09:01)
[2018-01-05] MEDS: PROPRANOLOL HCL 10 MG TABLET PO SCH ×3 (09:01→16:30)
[2018-01-05 16:15] VITALS: BP 117/79
[2018-01-05] MEDS: DIVALPROEX SODIUM 500 MG ER TABLET PO SCH (20:13)
[2018-01-05] MEDS: ZOLPIDEM TARTRATE 10 MG TABLET PO PRN (21:41)
[2018-01-06] MEDS: LEVOTHYROXINE SODIUM 25 MCG TABLET PO SCH (06:50)
[2018-01-06] MEDS: ARIPiprazole 10 MG TABLET PO SCH (08:12)
[2018-01-06] MEDS: PROPRANOLOL HCL 10 MG TABLET PO SCH ×3 (08:12→16:23)
[2018-01-06] MEDS: OMEPRAZOLE 20 MG CAPSULE PO SCH (08:13)
[2018-01-06 08:28] VITALS: BP 108/54
[2018-01-06 16:00] VITALS: BP 112/68
[2018-01-06] MEDS: DIVALPROEX SODIUM 500 MG ER TABLET PO SCH (20:37)
[2018-01-06] MEDS: ZOLPIDEM TARTRATE 10 MG TABLET PO PRN (20:38)
[2018-01-06] MEDS: LORazepam 2 MG TABLET PO PRN (21:21)
[2018-01-07] MEDS: LEVOTHYROXINE SODIUM 25 MCG TABLET PO SCH (06:43)
[2018-01-07] MEDS: ARIPiprazole 10 MG TABLET PO SCH (08:22)
[2018-01-07] MEDS: PROPRANOLOL HCL 10 MG TABLET PO SCH ×3 (08:22→16:23)
[2018-01-07] MEDS: OMEPRAZOLE 20 MG CAPSULE PO SCH (08:23)
[2018-01-07 08:42] VITALS: BP 96/61
[2018-01-07 16:53] VITALS: BP 118/75
[2018-01-07] MEDS: DIVALPROEX SODIUM 500 MG ER TABLET PO SCH (20:36)
[2018-01-08] MEDS: LEVOTHYROXINE SODIUM 25 MCG TABLET PO SCH (06:44)
[2018-01-08 08:34] VITALS: BP 94/56
[2018-01-08] MEDS: ARIPiprazole 10 MG TABLET PO SCH (08:35)
[2018-01-08] MEDS: OMEPRAZOLE 20 MG CAPSULE PO SCH (08:37)
[2018-01-08] MEDS: PROPRANOLOL HCL 10 MG TABLET PO SCH ×3 (08:41→17:04)
[2018-01-08] MEDS: DIVALPROEX SODIUM 500 MG ER TABLET PO SCH (20:28)
[2018-01-08 21:03] VITALS: BP 109/75
[2018-01-08] MEDS: ZOLPIDEM TARTRATE 10 MG TABLET PO PRN (21:50)
[2018-01-09] MEDS: LEVOTHYROXINE SODIUM 25 MCG TABLET PO SCH (06:44)
[2018-01-09 08:52] VITALS: BP 106/62
[2018-01-09] MEDS: ARIPiprazole 10 MG TABLET PO SCH (09:07)
[2018-01-09] MEDS: OMEPRAZOLE 20 MG CAPSULE PO SCH (09:07)
[2018-01-09] MEDS: PROPRANOLOL HCL 10 MG TABLET PO SCH ×3 (09:07→16:44)
[2018-01-09 16:00] VITALS: BP 143/73
[2018-01-09] MEDS: DIVALPROEX SODIUM 500 MG ER TABLET PO SCH (21:06)
[2018-01-09] MEDS: ZOLPIDEM TARTRATE 10 MG TABLET PO PRN (21:57)
[2018-01-10] MEDS: LORazepam 2 MG TABLET PO PRN (00:01)
[2018-01-10 00:28] VITALS: BP 107/79
[2018-01-10] MEDS: LEVOTHYROXINE SODIUM 25 MCG TABLET PO SCH (07:10)
[2018-01-10] MEDS: PROPRANOLOL HCL 10 MG TABLET PO SCH ×3 (08:12→17:47)
[2018-01-10] MEDS: OMEPRAZOLE 20 MG CAPSULE PO SCH (08:12)
[2018-01-10] MEDS: ARIPiprazole 10 MG TABLET PO SCH (08:12)
[2018-01-10 08:37] VITALS: BP 106/65
[2018-01-10] MEDS: DIVALPROEX SODIUM 500 MG ER TABLET PO SCH (20:11)
[2018-01-10] MEDS: ZOLPIDEM TARTRATE 10 MG TABLET PO PRN (21:08)
[2018-01-10 21:21] VITALS: BP 125/68
[2018-01-11] MEDS: LEVOTHYROXINE SODIUM 25 MCG TABLET PO SCH (06:23)
[2018-01-11 09:09] VITALS: BP 97/52
[2018-01-11] MEDS: OMEPRAZOLE 20 MG CAPSULE PO SCH (09:59)
[2018-01-11] MEDS: ARIPiprazole 10 MG TABLET PO SCH (10:00)
[2018-01-11] MEDS: PROPRANOLOL HCL 10 MG TABLET PO SCH ×3 (10:00→18:33)
[2018-01-11 16:57] VITALS: BP 121/67
[2018-01-11] MEDS: ZOLPIDEM TARTRATE 10 MG TABLET PO PRN (21:11)
[2018-01-11] MEDS: DIVALPROEX SODIUM 500 MG ER TABLET PO SCH (21:11)
[2018-01-12] MEDS: LEVOTHYROXINE SODIUM 25 MCG TABLET PO SCH (06:55)
[2018-01-12 08:18] VITALS: BP 110/61
[2018-01-12] MEDS: OMEPRAZOLE 20 MG CAPSULE PO SCH (08:22)
[2018-01-12] MEDS: PROPRANOLOL HCL 10 MG TABLET PO SCH ×3 (08:22→17:35)
[2018-01-12] MEDS: ARIPiprazole 10 MG TABLET PO SCH (08:22)
[2018-01-12 17:34] VITALS: BP 114/68
[2018-01-12] MEDS: ZOLPIDEM TARTRATE 10 MG TABLET PO PRN (21:38)
[2018-01-12] MEDS: DIVALPROEX SODIUM 500 MG ER TABLET PO SCH (21:38)
[2018-01-13] MEDS: LEVOTHYROXINE SODIUM 25 MCG TABLET PO SCH (07:10)
[2018-01-13 09:26] VITALS: BP 108/54
[2018-01-13] MEDS: PROPRANOLOL HCL 10 MG TABLET PO SCH ×3 (09:34→16:24)
[2018-01-13] MEDS: ARIPiprazole 10 MG TABLET PO SCH (09:34)
[2018-01-13] MEDS: OMEPRAZOLE 20 MG CAPSULE PO SCH (09:34)
[2018-01-13 16:37] VITALS: BP 108/72
[2018-01-13] MEDS: DIVALPROEX SODIUM 500 MG ER TABLET PO SCH (20:42)
[2018-01-13] MEDS: ZOLPIDEM TARTRATE 10 MG TABLET PO PRN (20:42)
[2018-01-13] MEDS: LORazepam 2 MG TABLET PO PRN (22:28)
[2018-01-14] MEDS: LEVOTHYROXINE SODIUM 25 MCG TABLET PO SCH (06:54)
[2018-01-14 08:56] VITALS: BP 126/68
[2018-01-14] MEDS: PROPRANOLOL HCL 10 MG TABLET PO SCH ×3 (09:28→16:51)
[2018-01-14] MEDS: ARIPiprazole 10 MG TABLET PO SCH (09:29)
[2018-01-14] MEDS: OMEPRAZOLE 20 MG CAPSULE PO SCH (09:29)
[2018-01-14 16:34] VITALS: BP 108/60
[2018-01-14] MEDS: DIVALPROEX SODIUM 500 MG ER TABLET PO SCH (21:04)
[2018-01-14] MEDS: ZOLPIDEM TARTRATE 10 MG TABLET PO PRN (21:30)
[2018-01-14] MEDS: LORazepam 2 MG TABLET PO PRN (23:28)
[2018-01-15] MEDS: LEVOTHYROXINE SODIUM 25 MCG TABLET PO SCH (06:58)
[2018-01-15 08:00] VITALS: BP 116/75
[2018-01-15] MEDS: OMEPRAZOLE 20 MG CAPSULE PO SCH (09:06)
[2018-01-15] MEDS: ARIPiprazole 10 MG TABLET PO SCH (09:07)
[2018-01-15] MEDS: PROPRANOLOL HCL 10 MG TABLET PO SCH ×3 (09:07→16:37)
[2018-01-15 16:43] VITALS: BP 108/68
[2018-01-15] MEDS: DIVALPROEX SODIUM 500 MG ER TABLET PO SCH (20:11)
[2018-01-15] MEDS: ZOLPIDEM TARTRATE 10 MG TABLET PO PRN (21:26)
[2018-01-16] MEDS: LEVOTHYROXINE SODIUM 25 MCG TABLET PO SCH (06:47)
[2018-01-16 08:00] VITALS: BP 117/70
[2018-01-16] MEDS: OMEPRAZOLE 20 MG CAPSULE PO SCH (09:22)
[2018-01-16] MEDS: PROPRANOLOL HCL 10 MG TABLET PO SCH ×3 (09:22→17:23)
[2018-01-16] MEDS: ARIPiprazole 10 MG TABLET PO SCH (09:22)
[2018-01-16 17:56] VITALS: BP 118/72
[2018-01-16] MEDS: DIVALPROEX SODIUM 500 MG ER TABLET PO SCH (21:02)
[2018-01-16] MEDS: ZOLPIDEM TARTRATE 10 MG TABLET PO PRN (21:52)
[2018-01-17] MEDS: LEVOTHYROXINE SODIUM 25 MCG TABLET PO SCH (06:58)
[2018-01-17 06:59] LABS: ALANINE AMINOTRANSFERASE 31 U/L (12-78); ALBUMIN 3.4 g/dL (3.4-5.0); ALKALINE PHOSPHATASE 70 U/L (46-116); ANION GAP 7 mmol/L (8-16); ASPARTATE AMINOTRANSFERASE 15 U/L (15-37); BILIRUBIN,TOTAL 0.3 mg/dL (0.1-1.0); CALCIUM, TOTAL 9.3 mg/dL (8.8-10.5); CARBON DIOXIDE 31 mmol/L (22-29); CHLORIDE 104 mmol/L (98-107); CREATININE 1.14 mg/dL (0.60-1.30); GLOMERULAR FILTR. RATE CALC > 60 mL/min (>60); GLUCOSE,RANDOM 87 mg/dL (70-110); POTASSIUM 4.3 mmol/L (3.5-5.1); SODIUM SERUM 142 mmol/L (136-145); TOTAL PROTEIN, SERUM 6.6 g/dL (6.4-8.2); UREA NITROGEN, BLOOD 15 mg/dL (7-18); VALPROIC ACID 75 mcg/mL (50-100)
[2018-01-17] MEDS: PROPRANOLOL HCL 10 MG TABLET PO SCH ×3 (08:45→17:08)
[2018-01-17] MEDS: OMEPRAZOLE 20 MG CAPSULE PO SCH (08:45)
[2018-01-17] MEDS: ARIPiprazole 10 MG TABLET PO SCH (08:45)
[2018-01-17 11:43] VITALS: BP 100/54
[2018-01-17] MEDS: DIVALPROEX SODIUM 500 MG ER TABLET PO SCH (20:22)
[2018-01-17] MEDS: ZOLPIDEM TARTRATE 10 MG TABLET PO PRN (21:11)
[2018-01-18] MEDS: LEVOTHYROXINE SODIUM 25 MCG TABLET PO SCH (06:46)
[2018-01-18] MEDS: PROPRANOLOL HCL 10 MG TABLET PO SCH ×3 (08:24→17:11)
[2018-01-18] MEDS: OMEPRAZOLE 20 MG CAPSULE PO SCH (08:24)
[2018-01-18] MEDS: ARIPiprazole 10 MG TABLET PO SCH (08:24)
[2018-01-18 13:00] VITALS: BP 114/60
[2018-01-18 17:54] VITALS: BP 120/62
[2018-01-18] MEDS: ZOLPIDEM TARTRATE 10 MG TABLET PO PRN (20:40)
[2018-01-18] MEDS: DIVALPROEX SODIUM 500 MG ER TABLET PO SCH (20:41)
[2018-01-19] MEDS: LEVOTHYROXINE SODIUM 25 MCG TABLET PO SCH (06:45)
[2018-01-19] MEDS: PROPRANOLOL HCL 10 MG TABLET PO SCH ×3 (08:16→16:58)
[2018-01-19] MEDS: ARIPiprazole 10 MG TABLET PO SCH (08:16)
[2018-01-19] MEDS: OMEPRAZOLE 20 MG CAPSULE PO SCH (08:16)
[2018-01-19 09:36] VITALS: BP 91/52
[2018-01-19 12:15] VITALS: BP 111/67
[2018-01-19 16:00] VITALS: BP 145/73
[2018-01-19] MEDS: DIVALPROEX SODIUM 500 MG ER TABLET PO SCH (21:16)
[2018-01-19] MEDS: ZOLPIDEM TARTRATE 10 MG TABLET PO PRN (21:16)
[2018-01-20] MEDS: LEVOTHYROXINE SODIUM 25 MCG TABLET PO SCH (06:53)
[2018-01-20 08:33] VITALS: BP 106/67
[2018-01-20] MEDS: PROPRANOLOL HCL 10 MG TABLET PO SCH ×3 (09:53→16:38)
[2018-01-20] MEDS: ARIPiprazole 10 MG TABLET PO SCH (09:53)
[2018-01-20] MEDS: OMEPRAZOLE 20 MG CAPSULE PO SCH (09:53)
[2018-01-20] MEDS: LORazepam 2 MG TABLET PO PRN (21:01)
[2018-01-20] MEDS: DIVALPROEX SODIUM 500 MG ER TABLET PO SCH (21:02)
[2018-01-20] MEDS: ZOLPIDEM TARTRATE 10 MG TABLET PO PRN (21:51)
[2018-01-21] MEDS: LEVOTHYROXINE SODIUM 25 MCG TABLET PO SCH (06:48)
[2018-01-21 08:34] VITALS: BP 105/52
[2018-01-21] MEDS: PROPRANOLOL HCL 10 MG TABLET PO SCH ×3 (08:45→16:38)
[2018-01-21] MEDS: OMEPRAZOLE 20 MG CAPSULE PO SCH (08:45)
[2018-01-21] MEDS: ARIPiprazole 10 MG TABLET PO SCH (08:46)
[2018-01-21] MEDS ORDERED: TUBERCULIN, PURIFIED PROTEIN DERIVATIVE 5 TU/0.1 ML SYG ID ONE (10:15)
[2018-01-21 19:38] VITALS: BP 120/78
[2018-01-21] MEDS: DIVALPROEX SODIUM 500 MG ER TABLET PO SCH (21:33)
[2018-01-21] MEDS: ZOLPIDEM TARTRATE 10 MG TABLET PO PRN (23:00)
[2018-01-22] MEDS: LEVOTHYROXINE SODIUM 25 MCG TABLET PO SCH (06:58)
[2018-01-22] MEDS: PROPRANOLOL HCL 10 MG TABLET PO SCH ×3 (08:29→17:30)
[2018-01-22] MEDS: ARIPiprazole 10 MG TABLET PO SCH (08:29)
[2018-01-22] MEDS: OMEPRAZOLE 20 MG CAPSULE PO SCH (08:29)
[2018-01-22 09:06] VITALS: BP 105/55
[2018-01-22 18:31] VITALS: BP 116/68
[2018-01-22] MEDS: DIVALPROEX SODIUM 500 MG ER TABLET PO SCH (20:40)
[2018-01-22] MEDS: ZOLPIDEM TARTRATE 10 MG TABLET PO PRN (21:39)
[2018-01-23] MEDS: LEVOTHYROXINE SODIUM 25 MCG TABLET PO SCH (06:57)
[2018-01-23] MEDS: OMEPRAZOLE 20 MG CAPSULE PO SCH (08:56)
[2018-01-23] MEDS: ARIPiprazole 10 MG TABLET PO SCH (08:57)
[2018-01-23] MEDS: PROPRANOLOL HCL 10 MG TABLET PO SCH ×3 (08:57→17:17)
[2018-01-23 11:15] VITALS: BP 111/58
[2018-01-23] MEDS: LORazepam 2 MG TABLET PO PRN ×2 (13:33→23:36)
[2018-01-23] MEDS ORDERED: LEVO25TA9 PO (14:07)
[2018-01-23] MEDS ORDERED: OMEP20 PO (14:07)
[2018-01-23] MEDS ORDERED: DIVA500T52 PO (14:12)
[2018-01-23] MEDS ORDERED: ARIP10TA8 PO (14:12)
[2018-01-23] MEDS ORDERED: PROP10TA73 PO (14:12)
[2018-01-23] MEDS: DIVALPROEX SODIUM 500 MG ER TABLET PO SCH (20:24)
[2018-01-23] MEDS: ZOLPIDEM TARTRATE 10 MG TABLET PO PRN (21:11)
[2018-01-24] VITALS: BP 130/75
[2018-01-24] MEDS: LORazepam 2 MG TABLET PO PRN ×2 (04:54→12:10)
[2018-01-24] MEDS: LEVOTHYROXINE SODIUM 25 MCG TABLET PO SCH (07:02)
[2018-01-24] MEDS: ARIPiprazole 10 MG TABLET PO SCH (08:00)
[2018-01-24] MEDS: OMEPRAZOLE 20 MG CAPSULE PO SCH (08:00)
[2018-01-24] MEDS: PROPRANOLOL HCL 10 MG TABLET PO SCH ×2 (08:00→12:15)
== END 2018-01-24 14:15 | DRG 753 ==
LOC: EMS 19:51 → 3EC 22:30
DX: F31.4 Bipolar disorder, current episode depressed, severe, without psychotic features (principal); E11.9 Type 2 diabetes mellitus without complications; R45.851 Suicidal ideations; F11.10 Opioid abuse, uncomplicated; F12.90 Cannabis use, unspecified, uncomplicated; F14.10 Cocaine abuse, uncomplicated; F15.10 Other stimulant abuse, uncomplicated; F17.200 Nicotine dependence, unspecified, uncomplicated; F41.9 Anxiety disorder, unspecified; E03.9 Hypothyroidism, unspecified; G47.00 Insomnia, unspecified; K59.00 Constipation, unspecified; R94.5 Abnormal results of liver function studies; Z59.0 Homelessness; Z79.899 Other long term (current) drug therapy; Z71.6 Tobacco abuse counseling; Z71.51 Drug abuse counseling and surveillance of drug abuser
CPT/HCPCS: 87081; 99285; G0480; Q0162

== ENCOUNTER 2019-04-03 20:49 | Emergency (ER) | payer MEDICAID ==
[~2019-04-03] VITALS: Ht 182.9 cm; Wt 77.0 kg
[~2019-04-03 20:49] MED LIST changes: +ARIP10TA8 PO; -ARIP2 PO; -DIVA-76 PO; +DIVA500T52 PO; +LEVO25TA9 PO; -METF-960 PO; +OMEP20 PO; +PROP10TA73 PO; -TOPI100T37 PO
[2019-04-03 22:02] LABS: BASOPHILS % (AUTO) 0.3 % (0.0-2.0); EOSINOPHILS % (AUTO) 0.6 % (1.0-6.0); HEMATOCRIT 42.6 % (41-53); HEMOGLOBIN 14.5 g/dL (13.5-17.5); LYMPHOCYTES # (AUTO) 1.3 K/uL (1.0-4.8); LYMPHOCYTES % (AUTO) 8.4 % (22.0-44.0); MEAN CORPUSCULAR HGB CONC 34.2 G/dL (31.0-37.0); MEAN CORPUSCULAR VOLUME 94 fL (80-100); MONOCYTES # (AUTO) 1.1 K/uL (0.1-1.0); MONOCYTES % (AUTO) 7.2 % (2.0-9.0); NEUTROPHILS # (AUTO) 12.7 K/uL (1.8-7.7); NEUTROPHILS % (AUTO) 83.5 % (40.0-70.0); PLATELET COUNT (AUTO) 258 K/uL (150-450); RED BLOOD CELL COUNT(AUTO) 4.55 MIL/uL (4.50-5.90); RED CELL DISTRIBUTION WIDTH 13.4 % (11.5-14.5)
[2019-04-03 22:20] LABS: ANION GAP 9 mmol/L (8-16); CALCIUM, TOTAL 8.8 mg/dL (8.8-10.5); CARBON DIOXIDE 26 mmol/L (22-29); CHLORIDE 101 mmol/L (98-107); CREATININE 1.02 mg/dL (0.60-1.30); GLOMERULAR FILTR. RATE CALC > 60 mL/min (>60); GLUCOSE,RANDOM 113 mg/dL (70-110); POTASSIUM 3.3 mmol/L (3.5-5.1); SODIUM SERUM 136 mmol/L (136-145); UREA NITROGEN, BLOOD 16 mg/dL (7-18)
[2019-04-03 22:28] LABS: ALANINE AMINOTRANSFERASE 50 U/L (12-78); ALBUMIN 3.8 g/dL (3.4-5.0); ALKALINE PHOSPHATASE 78 U/L (46-116); ASPARTATE AMINOTRANSFERASE 61 U/L (15-37); BILIRUBIN,TOTAL 0.6 mg/dL (0.1-1.0); FREE T4 (FREE THYROXINE) 1.27 ng/dL (0.76-1.46); THYROID STIMULATING HORMONE 0.99 uIU/mL (0.36-3.74); TOTAL PROTEIN, SERUM 6.8 g/dL (6.4-8.2)
[2019-04-03 22:46] LABS: VALPROIC ACID < 3 mcg/mL (50-100)
[2019-04-03] MEDS ORDERED: POTASSIUM CHLORIDE 20 MEQ ER TABLET PO ONE (23:45)
[2019-04-04 03:00] VITALS: BP 123/70
== END 2019-04-04 03:44 | disposition home or self-care (01) ==
LOC: EMS 20:50
DX: R45.851 Suicidal ideations (principal); R45.1 Restlessness and agitation; F20.9 Schizophrenia, unspecified; F15.90 Other stimulant use, unspecified, uncomplicated; F12.90 Cannabis use, unspecified, uncomplicated; F11.90 Opioid use, unspecified, uncomplicated; Z79.899 Other long term (current) drug therapy
CPT/HCPCS: 36415; 80053; 80164; 84439; 84443; 85025; 99285; G0480